=== PATIENT | male | born 1980 | race Caucasian/White ===

== ENCOUNTER 2016-06-10 16:01 | Emergency (ER) | payer MEDICARE, MEDICAID ==
[~2016-06-10] VITALS: Ht 188 cm; Wt 59.0 kg
[~2016-06-10 16:01] MED LIST: ASCO250T7 PO; ATEN25TA PO; CHOL100040 PO
[2016-06-10] MEDS ORDERED: DIATR MEGLU/DIATRIZOATE SODIUM 30 ML BOTTLE (GASTROGRAPHIN) ONE ×2 (18:19)
[2016-06-10 22:41] VITALS: BP 112/80
== END 2016-06-10 22:43 | disposition home or self-care (01) ==
LOC: ER 16:03
DX: K94.13 Enterostomy malfunction (principal); K56.41 Fecal impaction; K56.60 Unspecified intestinal obstruction; L03.319 Cellulitis of trunk, unspecified; I42.9 Cardiomyopathy, unspecified; J96.10 Chronic respiratory failure, unspecified whether with hypoxia or hypercapnia; E11.9 Type 2 diabetes mellitus without complications; G71.0 Muscular dystrophy; Z99.3 Dependence on wheelchair; Z88.0 Allergy status to penicillin; Z88.2 Allergy status to sulfonamides; Z88.1 Allergy status to other antibiotic agents
CPT/HCPCS: 74176; 99284; A4606; J3490; Q9963; Z7610

== ENCOUNTER 2022-05-06 18:07 | Inpatient (IN) | payer MEDICARE, OTHER ==
[~2022-05-06] VITALS: Ht 162.6 cm; Wt 73.9 kg
--- NOTE | 2022-05-06 18:20 | NUR ---
pt theodorera from home to er bed 05 accompanied by caregiver w/ complaints of "difficulty swallowing" and episode of o2 desaturation, pt fis vent dependent. tachycardic but afebrile ship captain. placed on monitor, rt called for vent set up. awaiting md goodwin.
--- NOTE | 2022-05-06 18:35 | NUR ---
RT AT BEDSIDE FOR VENT SET-UP
--- NOTE | 2022-05-06 18:50 | NUR ---
dr beal at bedside for eval.
--- NOTE | 2022-05-06 19:08 | NUR ---
SUBMITTED MOVE SHEETS
--- NOTE | 2022-05-06 19:29 | NUR ---
FAMILY [phone] IVANNA VENEGAS
--- NOTE | 2022-05-06 19:30 | NUR ---
RT NOTE LATE ENTRY Pt rec'd trached via Bivona sz 6 uncuffed on mech vent settings given from caregiver. Pt placed on mech vent on AC mode settings as charted. Family member refuses for trach to be changed to a cuffed trach due to complications, MD and RN aware. Trach is patent and secured. Pt awake and alert. Sx'd for small amount of thick white secretions. Alarms are set and audible. Ambu bag and emergency spare trach at bedside. Vent plugged into red outlet. ABG taken and critical results noted. aware. Addendum: 05/06/22 at 2008 by ARCELIA AVILES RT Amended: Links added.
--- NOTE | 2022-05-06 19:45 | NUR ---
FLU AND COVID SWAB COLLECTED
--- NOTE | 2022-05-06 19:49 | NUR ---
RECEIVED REPORT FROM JOEY AVENDAÑO. PATIENT CAME WITH TRACHE AND WAS USING VENT. HE CAME WITH CC OF UNABLE TO SWALLOW. PATIENT HAS NICHOLAS UPPER AND LOWER EXTREMITIES CONTRACTURES. HE RESPONDS BY KNODDING HIS HEAD AND TALKING...
--- NOTE | 2022-05-06 19:49 | NUR ---
CAREGIVER AND RT AT BEDSIDE. PATIENT HAS NO PAIN COMPLAINTS. ATTACHED TO MONITOR. VITALS CHECKED.
--- NOTE | 2022-05-06 19:49 | NUR ---
CAME WITH TRACHE ATTACHED TO VENT ON AC MODE. FiO2 50, TV 1100, RATE OF 13, PEEP 0
--- NOTE | 2022-05-06 19:50 | NUR ---
CALLED NURSE SUP FOR FOLLOW UP MIDLINE, NO ETA
[2022-05-06 19:53] LABS: PEEP,VBG 0 cm H2O; SITE, VBG Left Radial; VBG COHb 0.3 %; VBG MetHb 0.6 %; VBG O2Hb 98.5 %; VENT MODE, VBG AC 13 1100 50% +0; VT, VBG 1100 mL
--- NOTE | 2022-05-06 20:27 | NUR ---
L WRIST #22G S/L BLOOD COLLECTED AND SENT TO LAB
[2022-05-06 20:39] LABS: HEMATOCRIT 55 % (39-51); LYMPHOCYTES # (AUTO) 1.3 K/uL (0.8-4.8); LYMPHOCYTES % (AUTO) 5.5 % (20.0-44.0); MEAN CORPUSCULAR HGB CONC 31 g/dl (31.0-36.0); MEAN CORPUSCULAR VOLUME 103 fL (80-96); MONOCYTES # (AUTO) 1.9 K/uL (0.1-1.30); NEUTROPHILS # (AUTO) 20.6 K/uL (1.8-8.9); NEUTROPHILS % (AUTO) 86.5 % (43.0-81.0); PLATELET COUNT (AUTO) 319 K/uL (150-450); RED BLOOD CELL COUNT(AUTO) 5.27 MIL/uL (4.5-6.0); WHITE BLOOD COUNT (AUTO) 23.8 K/uL (4.3-11.0)
[2022-05-06 21:27] LABS: CALCIUM, SERUM 10.3 mg/dL (8.5-10.1); CHLORIDE 101 mmol/L (98-107); CREATININE 0.4 mg/dL (0.6-1.3); GLUCOSE 103 mg/dL (74-106); POTASSIUM 5.6 mmol/L (3.5-5.1); SODIUM SERUM 137 mmol/L (136-145); UREA NITROGEN, BLOOD 28 mg/dL (7-18)
[2022-05-06 21:30] LABS: CARBON DIOXIDE 5 mmol/L (21-32)
--- NOTE | 2022-05-06 21:31 | NUR ---
CO2 - 5
[2022-05-06] MEDS ORDERED: SODIUM POLYSTYRENE SULFONATE 15 G/60 ML BOTTLE PO ONE (22:00)
[2022-05-06] MEDS ORDERED: SODIUM BICARBONATE SYR 50 MEQ/50 ML DISP.SYRIN IV ONE ×2 (22:00→23:30)
[2022-05-06] MEDS ORDERED: IV NS 0.9% 1,000 ML BAG IV ONE (22:00)
[2022-05-06] MEDS ORDERED: AZTREONAM 1 G in IV NS 0.9% 100 ML IV ONE (22:00)
[2022-05-06] MEDS ORDERED: AZITHROMYCIN 500 MG in IV D5W 250 ML IV ONE (22:00)
--- NOTE | 2022-05-06 22:06 | NUR ---
RT NOTE LATE ENTRY 2ND ABG TAKEN AND CRITICAL RESULTS REPORTED TO DILCIA CAMILO
[2022-05-06] MEDS ORDERED: Sodium Bicarbonate 150 MEQ in IV NS 0.9% 1,000 ML IV STA (22:11)
[2022-05-06] MEDS ORDERED: Sodium Bicarbonate 150 MEQ in IV D5W 1,000 ML IV STA (22:17)
[2022-05-06] MEDS ORDERED: AZITHROMYCIN 500 MG VIAL ONE (22:18)
[2022-05-06 22:22] LABS: ABG BASE EXCESS -27.3 mmol/L; ABG PCO2 13.6 mmHg (35.0-45.0); ABG PH 6.962 (7.350-7.450); ABG PO2 297.7 mmHg (75.0-100.0); COHb 0.3 % (0.5-1.5); MetHb 0.7 % (0.0-1.5); O2Hb 98.4 % (94.0-97.0); PEEP,BG 0 cm H2O; SITE, ABG Right Radial; VENT MODE, BG AC 13 1100 50% +0; VT, ABG 1100 mL
[2022-05-06] MEDS: VANCOMYCIN 1 GM in IV D5W 250 ML IV ONE ×2 (22:23→23:55)
--- NOTE | 2022-05-06 22:25 | NUR ---
PT FAILED SWALLOWING TEST. TRIED INTRODUCING WATER BEFORE MEDICINE. PT CANNOT SWALLOW. DR HA MADE AWARE
[2022-05-06 22:29] LABS: BAND % (MANUAL) 3 % (0.0-5.0); LYMPHOCYTES % (MANUAL) 8 % (16-48); MONOCYTES % (MANUAL) 10 % (0-11.0); NEUTROPHILS % (MANUAL) 79 (42-76)
[2022-05-06] MEDS ORDERED: AZTREONAM 1 G VIAL ONE (22:31)
--- NOTE | 2022-05-06 22:45 | NUR ---
LEFT VM TO FACILITY TO CALL BACK. I HAVE INQUIRIES ABOUT THE PATIENT.
[2022-05-07] VITALS (41 sets, daily range): BP systolic 81–133; BP diastolic 42–89
--- NOTE | 2022-05-07 00:14 | NUR ---
GAVE A TOTAL OF 200 meq IVP Na HCo3. PER BARBARA VIZCAINO TO HOLD DR HA'S ORDER FOR NOW.
[2022-05-07] MEDS ORDERED: VANCOMYCIN 1 GM VIAL ONE (00:29)
--- NOTE | 2022-05-07 00:30 | NUR ---
RT NOTE LATE ENTRY Pt rec'd on bivona cuffless trach sz 6. Trach change to [place] SZ 6 cuffed per Wilstein AUTOMATIC EMBROIDERY MACHINE TENDER orders. Minimal bleeding noted. Pt able to receive adequate tidal volumes and airway [facility] Spo2 at 100%. Clear breath sounds heard on auscultation. Vent changes made per Wilstein AUTOMATIC EMBROIDERY MACHINE TENDER orders. Abg to be taken at 0100 per Wilstein orders. Addendum: 05/07/22 at 0104 by ARCELIA AVILES RT Amended: Links added.
--- NOTE | 2022-05-07 00:57 | NUR ---
ROOM 258
[2022-05-07] MEDS ORDERED: ACETAMINOPHEN 325 MG TABLET PO PRN (01:00)
[2022-05-07] MEDS ORDERED: CLINDAMYCIN IV RTU IN D5W 900 MG/50 ML PIGGYBACK IV SCH (01:00)
[2022-05-07] MEDS ORDERED: Z GUARD REMEDY 4 OZ OINT TP PRN (01:00)
[2022-05-07] MEDS ORDERED: ENOXAPARIN SODIUM 40 MG/0.4 ML DISP.SYRIN SQ SCH ×2 (01:00→06:39)
[2022-05-07] MEDS ORDERED: ONDANSETRON HCL/PF 4 MG/2 ML VIAL IVP PRN (01:00)
[2022-05-07 01:34] LABS: ABG BASE EXCESS -14.2 mmol/L; ABG PCO2 18.5 mmHg (35.0-45.0); ABG PH 7.314 (7.350-7.450); ABG PO2 271.9 mmHg (75.0-100.0); COHb 0.3 % (0.5-1.5); MetHb 0.5 % (0.0-1.5); O2Hb 98.5 % (94.0-97.0); PEEP,BG 0 cm H2O; SITE, ABG Right Radial; VENT MODE, BG AC 35 450 50% +0; VT, ABG 450 mL
--- NOTE | 2022-05-07 01:56 | NUR ---
RADIO TELEVISION ANNOUNCER AT PT'S BEDSIDE
--- NOTE | 2022-05-07 01:58 | NUR ---
IV CANNULA G22 INSERTED ON LEFT UPPER ARM, G24 ON RIGHT UPPER ARM. CANNOT DRAW BLODDS.
--- NOTE | 2022-05-07 01:59 | NUR ---
REPORT GIVEN TO JOEY CHAU
--- NOTE | 2022-05-07 02:12 | NUR ---
IFC F16 INSERTED. URINE SPECIMEN SENT TO LAB
--- NOTE | 2022-05-07 02:27 | NUR ---
PT TAKEN TO CT VIA ALVERTORARCHANA WITH RT ACLS PROTOCOL
[2022-05-07 02:35] LABS: BILIRUBIN,URINE 2+ (NEGATIVE); COLOR,URINE YELLOW (YELLOW); LEUKOCYTE ESTERASE ,URINE 1+ (NEGATIVE); NITRITE, URINE NEGATIVE (NEGATIVE); PROTEIN,URINE 2+ mg/dl (NEGATIVE); UGLUCOSE NEGATIVE (NEGATIVE); UROBILINOGEN,URINE 0.2 EU/dL (0.2)
[2022-05-07 02:39] LABS: BACTERIA,URINE Few /HPF (None Seen); SQUAMOUS EPITHELIAL CELL,UR Few /HPF (None Seen)
--- NOTE | 2022-05-07 02:46 | NUR ---
PUSHED PT TO CT DEPT VENTED. ACCOM. BY NURSE AND RT, AND RESPIRATORY PRACTITIONER
[2022-05-07] MEDS ORDERED: SODIUM BICARBONATE SYR 50 MEQ/50 ML DISP.SYRIN ONE (02:53)
[2022-05-07] MEDS: Sodium Bicarbonate 150 MEQ in IV D5W 1,000 ML IV PRN ×3 (03:16→18:37)
[2022-05-07 03:21] LABS: BASOPHILS # (AUTO) 0.1 K/uL (0.0-0.2); BASOPHILS % (AUTO) 0.5 % (0.0-2.0); EOSINOPHILS % (AUTO) 0.2 % (0.0-6.0); HEMATOCRIT 54 % (39-51); HEMOGLOBIN 16.7 g/dL (13.5-17.5); LYMPHOCYTES # (AUTO) 2.6 K/uL (0.8-4.8); LYMPHOCYTES % (AUTO) 10.6 % (20.0-44.0); MEAN CORPUSCULAR HGB CONC 31 g/dl (31.0-36.0); MEAN CORPUSCULAR VOLUME 103 fL (80-96); MONOCYTES % (AUTO) 8.1 % (2.0-12.0); NEUTROPHILS # (AUTO) 19.6 K/uL (1.8-8.9); NEUTROPHILS % (AUTO) 80.6 % (43.0-81.0); PLATELET COUNT (AUTO) 296 K/uL (150-450); RED BLOOD CELL COUNT(AUTO) 5.25 MIL/uL (4.5-6.0); WHITE BLOOD COUNT (AUTO) 24.4 K/uL (4.3-11.0)
[2022-05-07] MEDS ORDERED: IV NS 0.9% 250 ML IV PRN (03:30)
[2022-05-07 03:43] LABS: ALBUMIN 4.5 g/dL (3.4-5.0); BILIRUBIN,DIRECT 0.5 mg/dL (0.0-0.2); BILIRUBIN,TOTAL 1.1 mg/dL (0.2-1.0); TOTAL PROTEIN, SERUM 8.1 g/dL (6.4-8.2)
[2022-05-07 03:54] LABS: CALCIUM, SERUM 9.2 mg/dL (8.5-10.1); CREATININE 0.5 mg/dL (0.6-1.3); PHOSPHORUS 3.5 mg/dL (2.5-4.9)
[2022-05-07 04:13] LABS: POTASSIUM 2.2 mmol/L (3.5-5.1)
[2022-05-07] MEDS ORDERED: CLINDAMYCIN IV RTU IN D5W 0 ML ONE (04:27)
[2022-05-07] MEDS ORDERED: POTASSIUM CL. PREMIX PERIPHER. 50 ML IV SCH (04:30)
[2022-05-07] MEDS ORDERED: METRONIDAZOLE 500MG/ NS 100ML 100 ML IV ONE (04:47)
[2022-05-07] MEDS: METRONIDAZOLE 500MG/ NS 100ML 500 MG in PREMIX 1 EA IV SCH ×4 (05:00→23:00)
[2022-05-07] MEDS: POTASSIUM CL. PREMIX PERIPHER. 50 ML IV SCH ×8 (05:00→13:05)
[2022-05-07 05:09] LABS: ABG BASE EXCESS -14.7 mmol/L; ABG OXYGEN SATURATION 98.9 % (92.0-98.5); ABG PCO2 19.4 mmHg (35.0-45.0); ABG PO2 148.3 mmHg (75.0-100.0); AaDO2 78.7 mmHg; COHb 0.7 % (0.5-1.5); MetHb 0.5 % (0.0-1.5); O2Hb 97.7 % (94.0-97.0); PEEP,BG 0 cm H2O; SITE, ABG Left Radial; VENT MODE, BG AC 35 450 35% +0; VT, ABG 450 mL
--- NOTE | 2022-05-07 07:17 | NUR ---
RN Notes Received patient in bed, resting and not grimacing. property assessment monitor showed SR with HR 68/min. Spo2 96% with FiO2 0.4, SIMV mode via ETT, marking at 23cm. Circulation is good with restraint use. Iv site over right subclavian and right upper arm midline are dry and patent, with NS running at 30mL/hr via right subclavian site. Bed is locked and placed in the lowest position. All safety measures have been implemented. Will continue monitoring and care.
[2022-05-07] MEDS ORDERED: IPRA3AMP23 NEB (08:28)
[2022-05-07] MEDS ORDERED: SPIR25TA6 PO (08:28)
[2022-05-07] MEDS ORDERED: METO25TA4 PO (08:28)
[2022-05-07] MEDS ORDERED: LISI10TA29 PO (08:28)
[2022-05-07] MEDS ORDERED: CLINDAMYCIN 900 MG in IV D5W 50 ML IV SCH (09:00)
[2022-05-07] MEDS: PANTOPRAZOLE 40 MG VIAL IV SCH (09:31)
--- NOTE | 2022-05-07 10:21 | NUR ---
SS note: SS consult requested to locate next of kin/ decision maker. SW called the pt.'s caregiver, Jesica Elizondo [phone] and she stated that she has been caring for the pt. for the past 10 years and that the pt.'s mother is . Per Jesica, she called the pt.'s [id number], Moises and notified him that the hospital needs a next of kin. Per Jesica, Moises does not want to be involved and has allegedly notified patient's relatives of situation and provide SW number. SW will follow up as needed.
[2022-05-07] MEDS: VANCOMYCIN 500 MG in IV D5W 100 ML IV SCH ×3 (10:55→23:00)
--- NOTE | 2022-05-07 12:00 | NUR ---
Next of Kin: ENRIQUE received call from the pt.'s caregiver, Jesica Elizondo [phone] stating that ENRIQUE could contact Kadeem Townsend [phone]. ENRIQUE called Kadeem and Kadeem stated that the pt. was adopted as an by his grandmother, Meliza who has since and pt. was then cared for by the Iris' sister, Farnaz and her , Ed [phone]. Farnaz has also but her remains and may be knowledgeable about the pt.s' medical history. Kadeem stated he is the 1st cousin of pt.'s adoptive mother, Meliza and he is happy to assist in any decision making as needed.ENRIQUE notified the pt.'s nurse.
--- NOTE | 2022-05-07 13:01 | NUR ---
Urine x ketone and acetone was collected. Lab is notified.
--- NOTE | 2022-05-07 14:00 | NUR ---
RN note Notified BARBARA Le about not being able to draw blood from midline and all the labs in the morning are pending. Await management.
[2022-05-07] MEDS ORDERED: CEFEPIME 2 GM in IV D5W 100 ML IV SCH (15:00)
[2022-05-07 17:15] LABS: ABG BASE EXCESS -6.2 mmol/L; ABG OXYGEN SATURATION 99.1 % (92.0-98.5); ABG PCO2 15.4 mmHg (35.0-45.0); ABG PH 7.528 (7.350-7.450); AaDO2 38.7 mmHg; COHb 0.5 % (0.5-1.5); MetHb 0.3 % (0.0-1.5); O2Hb 98.3 % (94.0-97.0); VT, ABG 400 mL
--- NOTE | 2022-05-07 17:15 | NUR ---
RN note JAVA PORTAL DEVELOPER Johnny Bryant has put a PICC over right UA. Blood is drawn for all labs today. Await result.
[2022-05-07 19:16] LABS: CALCIUM, SERUM 7.9 mg/dL (8.5-10.1); CREATININE 0.7 mg/dL (0.6-1.3); POTASSIUM 4.5 mmol/L (3.5-5.1)
[2022-05-07 19:21] LABS: ALBUMIN 3.4 g/dL (3.4-5.0); BILIRUBIN,TOTAL 0.8 mg/dL (0.2-1.0); MAGNESIUM 1.5 mg/dL (1.8-2.4); PHOSPHORUS 1.7 mg/dL (2.5-4.9); TOTAL PROTEIN, SERUM 6.6 g/dL (6.4-8.2)
[2022-05-07 20:14] LABS: THYROID STIMULATING HORMONE 12.53 uIU/mL (0.358-3.74)
--- NOTE | 2022-05-07 20:19 | NUR ---
RECEIVED PT TRACH PORTEX 6 ON VENT. PT IS AWAKE NO RESP DISTRESS. PT TOLERATING VENT SETTINGS. SX'D SMALL AMT OF THICK WHITE SECRETIONS. VENT ALARMS SET AND AUDIBLE. AMBU BAG AT BEDSIDE. CONTINUE TO MONITOR. Addendum: 05/07/22 at 2020 by MARTIN MCGOVERN RT Amended: Links added.
[2022-05-07] MEDS ORDERED: IV LR 1000 ML 1,000 ML IV ONE (20:30)
--- NOTE | 2022-05-07 20:30 | NUR ---
BOOK AUTHOR LR BOLUS GIVEN FOR HYPOTENSION PER BARBARA GUAJARDO
[2022-05-07 21:55] LABS: ACETAMINOPHEN 0 ug/ml (10-30)
[2022-05-07 21:57] LABS: CREATINE KINASE, TOTAL 249 U/L (39-308)
[2022-05-08] VITALS (55 sets, daily range): BP systolic 71–129; BP diastolic 39–81
[2022-05-08] MEDS: CEFEPIME 2 GM in IV D5W 100 ML IV SCH ×3 (01:30→17:24)
[2022-05-08] MEDS: Sodium Bicarbonate 150 MEQ in IV D5W 1,000 ML IV PRN (02:38)
[2022-05-08] MEDS: METRONIDAZOLE 500MG/ NS 100ML 500 MG in PREMIX 1 EA IV SCH ×4 (05:00→23:22)
[2022-05-08 05:01] LABS: ABG BASE EXCESS 7.6 mmol/L; ABG OXYGEN SATURATION 99.1 % (92.0-98.5); ABG PCO2 27.5 mmHg (35.0-45.0); ABG PH 7.621 (7.350-7.450); ABG PO2 160.1 mmHg (75.0-100.0); AaDO2 57.5 mmHg; COHb 0.6 % (0.5-1.5); MetHb 0.3 % (0.0-1.5); O2Hb 98.2 % (94.0-97.0); SITE, ABG Left Radial
[2022-05-08 05:18] LABS: BASOPHILS % (AUTO) 0.1 % (0.0-2.0); EOSINOPHILS % (AUTO) 0.1 % (0.0-6.0); HEMATOCRIT 46 % (39-51); HEMOGLOBIN 15.6 g/dL (13.5-17.5); LYMPHOCYTES # (AUTO) 0.6 K/uL (0.8-4.8); LYMPHOCYTES % (AUTO) 4.4 % (20.0-44.0); MEAN CORPUSCULAR HGB CONC 34 g/dl (31.0-36.0); MEAN CORPUSCULAR VOLUME 93 fL (80-96); MONOCYTES # (AUTO) 0.7 K/uL (0.1-1.30); NEUTROPHILS # (AUTO) 12.8 K/uL (1.8-8.9); NEUTROPHILS % (AUTO) 90.4 % (43.0-81.0); PLATELET COUNT (AUTO) 219 K/uL (150-450); RED BLOOD CELL COUNT(AUTO) 4.93 MIL/uL (4.5-6.0); WHITE BLOOD COUNT (AUTO) 14.2 K/uL (4.3-11.0)
[2022-05-08 05:29] LABS: CALCIUM, SERUM 7.6 mg/dL (8.5-10.1); CREATININE 0.9 mg/dL (0.6-1.3); POTASSIUM 3.3 mmol/L (3.5-5.1)
[2022-05-08 05:36] LABS: MAGNESIUM 1.2 mg/dL (1.8-2.4); PHOSPHORUS 0.5 mg/dL (2.5-4.9)
--- NOTE | 2022-05-08 07:00 | NUR ---
RN NOTES RECEIVED PT ON BED, TRACH/ VENT DEPENDENT , TOLERATING VENT SETTING WELL, TRACH CARE DONE, ON TELE ST HR IN 120'S , SHEETS WITH SMALL AMOUNT OF URINE NOTED, PT NGT CLAMPED AT THIS TIME BICARB DRIP AT 150CC/HR RUNNING , IV SITES ,CDI, SR UP x3, CALL LIGHT WITHIN EASY REACH, BED LOCKED AND IN LOWEST POSITION, CONTINUE TO MONITOR .
[2022-05-08] MEDS: Magnesium 1GM/D5W 100ML PREMIX 100 ML IV SCH ×4 (07:01→10:40)
[2022-05-08] MEDS: POTASSIUM PHOSPHATE MM 7.5 MMOL in IV NS 0.9% 100 ML IV SCH ×4 (07:01→22:24)
[2022-05-08] MEDS: VANCOMYCIN 500 MG in IV D5W 100 ML IV SCH (08:23)
[2022-05-08] MEDS: PANTOPRAZOLE 40 MG VIAL IV SCH (08:28)
[2022-05-08] MEDS: ENOXAPARIN SODIUM 40 MG/0.4 ML DISP.SYRIN SQ SCH ×2 (08:29→21:13)
[2022-05-08 10:53] LABS: CREATININE 0.9 mg/dL (0.6-1.3); POTASSIUM 2.9 mmol/L (3.5-5.1)
[2022-05-08 10:58] LABS: MAGNESIUM 2.5 mg/dL (1.8-2.4); PHOSPHORUS 1.2 mg/dL (2.5-4.9)
--- NOTE | 2022-05-08 12:00 | NUR ---
RN NOTES TRACH CARE DONE, CONTINUE TO MONITOR
[2022-05-08] MEDS ORDERED: Sodium Phosphate 15 MMOL in IV NS 0.9% 245 ML IV SCH (14:00)
[2022-05-08] MEDS: Potassium Chloride 40 MEQ in IV D5/ 0.9% NACL 1,000 ML IV SCH ×2 (14:23→23:12)
[2022-05-08 14:53] LABS: CREATININE 0.7 mg/dL (0.6-1.3); POTASSIUM 2.9 mmol/L (3.5-5.1)
[2022-05-08 14:58] LABS: PHOSPHORUS 3.1 mg/dL (2.5-4.9)
--- NOTE | 2022-05-08 18:35 | NUR ---
RN NOTES TRACH CARE DONE PRN , FIO2 AT 55% AT THIS TIME,NO SIGNIFICANT CHANGES NOTED ON THIS SHIFT , PT STILL RECEIVING IV ELECTROLYSES REPLACEMENT , WILL ENDORSE TO SPEECH PATHOLOGIST ASSISTANT NURSE FOR CONTINUITY OF CARE
[2022-05-08] MEDS ORDERED: NOREPINEPHRINE 8MG/250ML RTU 250 ML IV ONE (20:04)
[2022-05-08] MEDS: NOREPINEPHRINE 8 MG in IV NS 0.9% 242 ML IV PRN (20:14)
[2022-05-08] MEDS: VANCOMYCIN 500 MG in IV D5W 100ml IV SCH ×2 (20:26→20:36)
[2022-05-08 22:56] LABS: CALCIUM, SERUM 6.8 mg/dL (8.5-10.1); CREATININE 0.8 mg/dL (0.6-1.3); MAGNESIUM 2.6 mg/dL (1.8-2.4); PHOSPHORUS 4.6 mg/dL (2.5-4.9); POTASSIUM 3.7 mmol/L (3.5-5.1)
[2022-05-09] VITALS (94 sets, daily range): BP systolic 84–121; BP diastolic 42–76
[2022-05-09] MEDS: CEFEPIME 2 GM in IV D5W 100 ML IV SCH ×3 (01:34→17:04)
[2022-05-09 02:46] LABS: CALCIUM, SERUM 6.5 mg/dL (8.5-10.1); CREATININE 0.8 mg/dL (0.6-1.3); MAGNESIUM 2.5 mg/dL (1.8-2.4); POTASSIUM 4.4 mmol/L (3.5-5.1)
[2022-05-09 05:14] LABS: BASOPHILS # (AUTO) 0.1 K/uL (0.0-0.2); HEMATOCRIT 43 % (39-51); HEMOGLOBIN 14.3 g/dL (13.5-17.5); LYMPHOCYTES # (AUTO) 0.3 K/uL (0.8-4.8); LYMPHOCYTES % (AUTO) 2.5 % (20.0-44.0); MEAN CORPUSCULAR HGB CONC 34 g/dl (31.0-36.0); MEAN CORPUSCULAR VOLUME 95 fL (80-96); MONOCYTES # (AUTO) 0.7 K/uL (0.1-1.30); MONOCYTES % (AUTO) 5.7 % (2.0-12.0); NEUTROPHILS % (AUTO) 90.8 % (43.0-81.0); PLATELET COUNT (AUTO) 221 K/uL (150-450); RED BLOOD CELL COUNT(AUTO) 4.47 MIL/uL (4.5-6.0); WHITE BLOOD COUNT (AUTO) 12.1 K/uL (4.3-11.0)
[2022-05-09] MEDS: METRONIDAZOLE 500MG/ NS 100ML 500 MG in PREMIX 1 EA IV SCH (05:28)
[2022-05-09 05:36] LABS: CALCIUM, SERUM 6.7 mg/dL (8.5-10.1); CREATININE 0.7 mg/dL (0.6-1.3); MAGNESIUM 2.5 mg/dL (1.8-2.4); PHOSPHORUS 4.4 mg/dL (2.5-4.9); POTASSIUM 4.1 mmol/L (3.5-5.1)
--- NOTE | 2022-05-09 06:52 | NUR ---
PT RECEIVED AWAKE IN BED, ALERT. ON MECH VENT WITH SETTINGS PRESCRIBED. ON TELE MONITOR READING ST WITH PVC'S. PT REMAINS ON NPO. PICC LINE IN PLACE, INFUSING POTASSIUM 40 MEQ IN D5NS AT 100ML/HR, LEVO AT 0.3MCG/HR. PT NGT CLAMPED AT THIS TIME. SHEETS WITH SMALL AMOUNT OF URINE NOTED, PT SLEPT WELL. KEPT CLEAN AND DRY. DUE MEDS AND PRN MEDS GIVEN NEEDED AND ORDERED. NEEDS ATTENDED. SAFETY MEASURES MAINTAINED. WILL ENDORSE TO NEXT NURSE ON DUTY FOR CONTINUITY OF CARE.
--- NOTE | 2022-05-09 07:00 | NUR ---
RN NOTES PT RECEIVED AWAKE ON BED, ALERT. VENT/ TRACH DEPENDENT, TOLERATING VENT SETTING WELL, ON TELE MONITOR READING ST WITH PVC'S. PT REMAINS ON NPO. PICC LINE IN PLACE, INFUSING POTASSIUM 40 MEQ IN D5NS AT 100ML/HR, LEVO AT 0.3MCG/HR. PT NGT CLAMPED AT THIS TIME. SHEETS WITH SMALL AMOUNT OF URINE NOTED, SAFETY MEASURES INPLACED, CONTINUE TO MONITOR
[2022-05-09] MEDS: NOREPINEPHRINE 8 MG in IV NS 0.9% 242 ML IV PRN (07:16)
--- NOTE | 2022-05-09 07:53 | NUR ---
fio2 decreased from 55% to 30% due to 100% spo2 Addendum: 05/09/22 at 0754 by ANEUDY REGALADO RT Amended: Links added.
[2022-05-09] MEDS: ENOXAPARIN SODIUM 40 MG/0.4 ML DISP.SYRIN SQ SCH ×2 (08:16→21:08)
[2022-05-09] MEDS: PANTOPRAZOLE 40 MG VIAL IV SCH (08:18)
[2022-05-09 09:27] LABS: ABG OXYGEN SATURATION 98.8 % (92.0-98.5); ABG PCO2 36.9 mmHg (35.0-45.0); ABG PO2 135.2 mmHg (75.0-100.0); AaDO2 35.3 mmHg; COHb 0.8 % (0.5-1.5); MetHb 0.5 % (0.0-1.5); O2Hb 97.5 % (94.0-97.0); SITE, ABG Right Radial; VENT MODE, BG aC 16 350 0 30%
[2022-05-09] MEDS: Potassium Chloride 40 MEQ in IV D5/ 0.9% NACL 1,000 ML IV SCH ×2 (10:53→20:20)
[2022-05-09 11:04] LABS: CALCIUM, SERUM 6.1 mg/dL (8.5-10.1); CREATININE 0.7 mg/dL (0.6-1.3); MAGNESIUM 2.2 mg/dL (1.8-2.4); PHOSPHORUS 3.2 mg/dL (2.5-4.9); POTASSIUM 3.9 mmol/L (3.5-5.1)
[2022-05-09 11:05] LABS: BILIRUBIN,DIRECT 0.3 mg/dL (0.0-0.2); BILIRUBIN,TOTAL 0.6 mg/dL (0.2-1.0)
--- NOTE | 2022-05-09 12:00 | NUR ---
RN NOTES TRACH CARE DONE, PT ON LEVO FOR BP SUPPORT, TF AT 20CC/HR RUNNING , PT TOLERATING WELL, CONTINUE TO MONITOR .
[2022-05-09] MEDS: GLUCERNA 1.2 1,000 ML BOTTLE NG PRN (12:28)
--- NOTE | 2022-05-09 16:00 | NUR ---
RN NOTES [facility] MATRASS PLACED ON THE BED .
--- NOTE | 2022-05-09 18:27 | NUR ---
RN NOTES TRACH CARE DONE PRN, PT REMAINS ON LEVO FOR PB SUPPORT, ON TELE ST , HR IN 120'S, SHEETS DRAINING TO GRAVITY, IVF AT 100CC/HR RUNNING , TOLERATING TF AT 20CC/HR WELL, WILL ENDORSE TO DAY CARE HOME PROVIDER NURSE FOR CONTINUITY OF CARE .
[2022-05-09] MEDS ORDERED: VANCOMYCIN 500 MG in IV D5W 100ml IV SCH (20:00)
[2022-05-10] VITALS (99 sets, daily range): BP systolic 70–116; BP diastolic 35–74
[2022-05-10] MEDS: CEFEPIME 2 GM in IV D5W 100 ML IV SCH ×3 (02:00→17:27)
[2022-05-10] MEDS: NOREPINEPHRINE 8 MG in IV NS 0.9% 242 ML IV PRN ×2 (03:31→13:08)
[2022-05-10 04:40] LABS: BASOPHILS % (AUTO) 0.2 % (0.0-2.0); EOSINOPHILS % (AUTO) 0.2 % (0.0-6.0); HEMATOCRIT 42 % (39-51); HEMOGLOBIN 13.9 g/dL (13.5-17.5); LYMPHOCYTES # (AUTO) 0.5 K/uL (0.8-4.8); LYMPHOCYTES % (AUTO) 4.8 % (20.0-44.0); MEAN CORPUSCULAR HGB CONC 33 g/dl (31.0-36.0); MEAN CORPUSCULAR VOLUME 96 fL (80-96); MONOCYTES # (AUTO) 0.6 K/uL (0.1-1.30); NEUTROPHILS % (AUTO) 89.8 % (43.0-81.0); PLATELET COUNT (AUTO) 167 K/uL (150-450); WHITE BLOOD COUNT (AUTO) 11.1 K/uL (4.3-11.0)
[2022-05-10 04:57] LABS: CALCIUM, SERUM 6.3 mg/dL (8.5-10.1); CREATININE 0.5 mg/dL (0.6-1.3); MAGNESIUM 2.1 mg/dL (1.8-2.4); PHOSPHORUS 1.8 mg/dL (2.5-4.9); POTASSIUM 4.7 mmol/L (3.5-5.1)
[2022-05-10 05:32] LABS: PROSTATE SPECIFIC ANTIGEN SCR 2.63 ng/mL (0.00-4.00)
--- NOTE | 2022-05-10 07:00 | NUR ---
RN NOTES RECEIVED PT ON BED, DRAWZY, FOLLOWS SIMPLE COMMAND, VENT/ TRACH DEPENDENT, TOLERATING VENT SETTING WELL, TRACH CARE DONE, ON TELE MONITOR READING ST HR IN 110'S, ON NGT FEEDING AT 20CC/HR , NO RESIDUAL NOTED ,PICC LINE IN PLACE, INFUSING POTASSIUM 40 MEQ IN D5NS AT 100ML/HR, LEVO AT 0.3MCG/HR. SHEETS WITH SMALL AMOUNT OF URINE NOTED, SAFETY MEASURES INPLACED, CONTINUE TO MONITOR
[2022-05-10] MEDS: Potassium Chloride 40 MEQ in IV D5/ 0.9% NACL 1,000 ML IV SCH (07:14)
[2022-05-10] MEDS: PANTOPRAZOLE 40 MG VIAL IV SCH (08:33)
[2022-05-10] MEDS: ENOXAPARIN SODIUM 40 MG/0.4 ML DISP.SYRIN SQ SCH ×2 (09:17→20:51)
[2022-05-10] MEDS: GLUCERNA 1.2 1,000 ML BOTTLE NG PRN (11:13)
[2022-05-10] MEDS ORDERED: NEUTRA PHOS 1 POWD.PACKET PO ONE (12:00)
--- NOTE | 2022-05-10 12:00 | NUR ---
RN NOTES TRACH CARE AND ORAL CARE DONE, PT ON LEVO FOR BP SUPPORT, CONTINUE TO MONITOR .
[2022-05-10 12:17] LABS: ABG BASE EXCESS -4.7 mmol/L; ABG OXYGEN SATURATION 97.7 % (92.0-98.5); ABG PCO2 40.4 mmHg (35.0-45.0); ABG PH 7.331 (7.350-7.450); ABG PO2 98.6 mmHg (75.0-100.0); AaDO2 67.8 mmHg; COHb 0.9 % (0.5-1.5); MetHb 0.3 % (0.0-1.5); O2Hb 96.5 % (94.0-97.0); SITE, ABG Right Radial
--- NOTE | 2022-05-10 17:00 | NUR ---
RN NOTES DR ASHLEY NOTIFIED REGARDING CORTISOL LEVEL 52.4 ,NO NEW ORDER GIVEN
--- NOTE | 2022-05-10 18:05 | NUR ---
RN NOTES TRACH CARE DONE PRN, PT REMAINS ON LEVO FOR PB SUPPORT, ON TELE ST , HR IN 120'S, SHEETS DRAINING TO GRAVITY, TOLERATING TF AT 20CC/HR WELL, WILL ENDORSE TO INTELLECTUAL PROPERTY MANAGER NURSE FOR CONTINUITY OF CARE .
--- NOTE | 2022-05-10 19:05 | NUR ---
RN OPENING NOTES RECEIVED PATIENT ON BED, AWAKE OPEN EYES, ON TRACH SIZE #6 WITH VENT SETTING AC-16, TV- 350, FIO2-30%, PEEP- OFF, AFEBRILE, NO S/S OF DISTRESS NOTED. NOTED WITH MICAELA PICC LINE. FLUSHED WITH NS. RUNNING WITH LEVO @ 0.2 MCG/KG/MIN. NOTED WITH NGT ON RIGHT NARE PATENT AND INTACT, VERIFIED PLACEMENT BY AUSCULTATION, NO RESIDUAL NOTED UPON ASPIRATION, RUNNING WITH GLUCERNA 1.2 @ 20 ML/HR, HEAD OF BED KEPT ELEVATED. SHEETS CATHETER PATENT INTACT DRAINING WITH CLEAR YELLOW URINE VIA GRAVITY. ALL SAFETY PRECAUTION PROVIDED. BED IN LOWEST POSITION, LOCKED. CALL LIGHT WITH IN REACH.
[2022-05-11] VITALS (96 sets, daily range): BP systolic 69–120; BP diastolic 41–83
[2022-05-11] MEDS: NOREPINEPHRINE 8 MG in IV NS 0.9% 242 ML IV PRN ×3 (00:51→22:43)
[2022-05-11] MEDS: CEFEPIME 2 GM in IV D5W 100 ML IV SCH ×3 (01:51→17:16)
[2022-05-11 04:15] LABS: EOSINOPHILS % (AUTO) 0.3 % (0.0-6.0); HEMATOCRIT 43 % (39-51); HEMOGLOBIN 14.4 g/dL (13.5-17.5); LYMPHOCYTES # (AUTO) 0.4 K/uL (0.8-4.8); LYMPHOCYTES % (AUTO) 4.9 % (20.0-44.0); MEAN CORPUSCULAR HGB CONC 33 g/dl (31.0-36.0); MEAN CORPUSCULAR VOLUME 96 fL (80-96); MONOCYTES # (AUTO) 0.5 K/uL (0.1-1.30); MONOCYTES % (AUTO) 5.7 % (2.0-12.0); NEUTROPHILS % (AUTO) 89.1 % (43.0-81.0); PLATELET COUNT (AUTO) 136 K/uL (150-450)
[2022-05-11 04:55] LABS: CREATININE 0.4 mg/dL (0.6-1.3); PHOSPHORUS 1.2 mg/dL (2.5-4.9); POTASSIUM 4.5 mmol/L (3.5-5.1)
--- NOTE | 2022-05-11 07:00 | NUR ---
RN OPENING NOTES RECEIVED REPORT FROM [facility] RN HAILEY. PATIENT ON MECHANICAL VENTILATION VIA TRACH. TOLERATING VENT SETTINGS WELL. PATIENT AWAKE,NONVERBAL BUT TRACKS WITH EYES. READING SINUS RHYTHM ON BEDSIDE MONITOR. SHEETS CATHETER DRAINING OUTPUT. GLUCERNA RUNNING ORDERED, NO RESIDUAL. IV ACCESS ON RIGHT UPPER ARM PICC LINE, FLUSHING EASILY WITHOUT RESISTANCE. LEVOPHED RUNNING ORDERED, WILL TITRATE PER PROTOCOL. SAFETY MEASURES IMPLEMENTED WILL CONTINUE PLAN OF CARE AND ANTICIPATE NEEDS.
--- NOTE | 2022-05-11 07:40 | NUR ---
WOUND CARE CONSULT: PT PRESENTS WITH GENERALIZED EDEMA, WEEPING EDEMA TO SCROTAL AREA WITH MOISTURE ASSOCIATED SKIN DAMAGE,AND DIFFUSE AREA OF DISCOLORATION TO LEFT BUTTOCK. PT IS ON FIRST STEP LOW AIRLOSS MATTRESS. ALL SKIN PROTECTION RECOMMENDATIONS DISCUSSED WITH NURSING STAFF. IN AGREEMENT WITH PLAN OF CARE. KORTNEY AGUILAR NOTED. Addendum: 05/11/22 at 0742 by LIZA JAIN WNDNU Amended: Links added.
[2022-05-11] MEDS: PANTOPRAZOLE 40 MG/PACK PACK GT SCH (09:16)
[2022-05-11] MEDS: ENOXAPARIN SODIUM 40 MG/0.4 ML DISP.SYRIN SQ SCH ×2 (09:17→21:39)
[2022-05-11] MEDS ORDERED: Sodium Phosphate 30 MMOL in IV NS 0.9% 250 ML IV SCH (10:00)
[2022-05-11] MEDS: IV NS 0.9% 250 ML IV PRN (10:25)
[2022-05-11] MEDS: GLUCERNA 1.2 1,000 ML BOTTLE NG PRN (10:44)
--- NOTE | 2022-05-11 19:25 | NUR ---
gave hand off report to alicja chau for continuation of care
--- NOTE | 2022-05-11 19:30 | NUR ---
RECEIVED REPORT FROM [facility] JOEY SHIPLEY. PATIENT ON MECHANICAL VENTILATION VIA TRACH ON SETTINGS PRESCRIBED. TOLERATING VENT SETTINGS WELL. PATIENT AWAKE, NONVERBAL BUT TRACKS WITH EYES. READING ST ON BEDSIDE MONITOR. SHEETS CATHETER DRAINING OUTPUT. GLUCERNA INFUSING ORDERED, NO RESIDUAL. IV ACCESS ON RIGHT UPPER ARM PICC LINE, FLUSHING EASILY WITHOUT RESISTANCE. LEVOPHED INFUSING ORDERED, WILL TITRATE PER PROTOCOL. SAFETY MEASURES IN PLACE. WILL CONTINUE PLAN OF CARE AND ANTICIPATE NEEDS.
[2022-05-12] VITALS (81 sets, daily range): BP systolic 77–130; BP diastolic 32–88
[2022-05-12] MEDS: CEFEPIME 2 GM in IV D5W 100 ML IV SCH ×3 (01:54→17:04)
[2022-05-12 04:56] LABS: BASOPHILS % (AUTO) 0.3 % (0.0-2.0); EOSINOPHILS % (AUTO) 0.2 % (0.0-6.0); HEMATOCRIT 41 % (39-51); HEMOGLOBIN 13.5 g/dL (13.5-17.5); LYMPHOCYTES # (AUTO) 0.4 K/uL (0.8-4.8); LYMPHOCYTES % (AUTO) 6.2 % (20.0-44.0); MEAN CORPUSCULAR HGB CONC 33 g/dl (31.0-36.0); MEAN CORPUSCULAR VOLUME 97 fL (80-96); MONOCYTES # (AUTO) 0.6 K/uL (0.1-1.30); MONOCYTES % (AUTO) 8.1 % (2.0-12.0); NEUTROPHILS # (AUTO) 6.1 K/uL (1.8-8.9); NEUTROPHILS % (AUTO) 85.2 % (43.0-81.0); PLATELET COUNT (AUTO) 86 K/uL (150-450); RED BLOOD CELL COUNT(AUTO) 4.24 MIL/uL (4.5-6.0); WHITE BLOOD COUNT (AUTO) 7.2 K/uL (4.3-11.0)
[2022-05-12 05:02] LABS: CALCIUM, SERUM 7.3 mg/dL (8.5-10.1); CREATININE 0.3 mg/dL (0.6-1.3); MAGNESIUM 1.8 mg/dL (1.8-2.4); PHOSPHORUS 2.8 mg/dL (2.5-4.9); POTASSIUM 3.5 mmol/L (3.5-5.1)
--- NOTE | 2022-05-12 06:37 | NUR ---
PATIENT AWAKE, NONVERBAL BUT TRACKS WITH EYES. PATIENT ON MECHANICAL VENTILATION VIA TRACH ON SETTINGS PRESCRIBED. TOLERATING VENT SETTINGS WELL. OS SAT AT 98%. READING SR ON BEDSIDE MONITOR. SHEETS CATHETER DRAINING. GLUCERNA INFUSING AT 35ML/HR, NO RESIDUAL. IV ACCESS ON RIGHT UPPER ARM PICC LINE, FLUSHING EASILY WITHOUT RESISTANCE. LEVOPHED INFUSING ORDERED, TITRATED TO 0.1 MCG/KG/MIN PER PROTOCOL. DUE MEDS GIVEN. NEEDS ATTENDED. KEPT CLEAN AND DRY. SAFETY MEASURES MAINTAINED. WILL ENDORSE TO NEXT NURSE ON DUTY FOR CONTINUITY OF CARE.
--- NOTE | 2022-05-12 07:15 | NUR ---
RN OPENING NOTES RECEIVED REPORT FROM [facility] JOEY PRATHER. PATIENT ON MECHANICAL VENTILATION VIA TRACH. TOLERATING VENT SETTINGS WELL. PATIENT AWAKE,NONVERBAL BUT TRACKS WITH EYES. READING SINUS RHYTHM ON BEDSIDE MONITOR. SHEETS CATHETER DRAINING OUTPUT. GLUCERNA RUNNING ORDERED, NO RESIDUAL. IV ACCESS ON RIGHT UPPER ARM PICC LINE, FLUSHING EASILY WITHOUT RESISTANCE. LEVOPHED RUNNING ORDERED, WILL TITRATE PER PROTOCOL. SAFETY MEASURES IMPLEMENTED WILL CONTINUE PLAN OF CARE AND ANTICIPATE NEEDS.
[2022-05-12] MEDS: PANTOPRAZOLE 40 MG/PACK PACK GT SCH (09:14)
[2022-05-12] MEDS: ENOXAPARIN SODIUM 40 MG/0.4 ML DISP.SYRIN SQ SCH ×2 (09:16→20:30)
--- NOTE | 2022-05-12 11:45 | NUR ---
SS note: SW received call from pt.'s alleged aunt, Jacqueline [phone] stating she wanted to provide her contact number if she is needed by [facility]. ENRIQUE thanked Jacqueline and notified her that Kadeem is the primary contact as of now and she can et updates from him as it is difficult to keep various family members updated. Jacqueline expressed understanding and stated she would be in communication with Willard.
[2022-05-12 13:47] LABS: BAND % (MANUAL) 1 % (0.0-5.0); LYMPHOCYTES % (MANUAL) 7 % (16-48); MONOCYTES % (MANUAL) 8 % (0-11.0); NEUTROPHILS % (MANUAL) 84 (42-76)
[2022-05-12] MEDS: NOREPINEPHRINE 8 MG in IV NS 0.9% 242 ML IV PRN ×2 (15:39→20:58)
--- NOTE | 2022-05-12 19:10 | NUR ---
HAND OFF REPORT GIVEN TO MICAH FOR CONTINUATION OF CARE Addendum: 05/12/22 at 1912 by AJ SANDS RN ASSIGNMENT CHANGED. HAND OFF GIVEN TO DAVID COOK FOR CONTINUATION OF CARE
--- NOTE | 2022-05-12 19:30 | NUR ---
RN OPENING NOTES RECEIVED REPORT FROM JOEY ROCHA. PT IN BED, ASLEEP. CURRENTLY ON MECHANICAL VENTILATION VIA TRACH. TOLERATING VENT SETTINGS WELL. O2 SAT IN THE 90s. READING SINUS TACH ON BEDSIDE MONITOR, HR >110 BPM. NO S/SX OF ACUTE RESPI DISTRESS NOTED AT THIS TIME. IV ACCESS ON RIGHT UPPER ARM PICC LINE, FLUSHING EASILY WITHOUT RESISTANCE. LEVOPHED RUNNING ORDERED, WILL TITRATE PER PROTOCOL. AND NS TKO. GLUCERNA RUNNING 35 CC/HR ORDERED VIA NGT, NO RESIDUAL. SHEETS CATHETER IN PLACE, DRAINING OUTPUT. ALL SAFETY MEASURES IN PLACE. WILL CONTINUE PLAN OF CARE AND ANTICIPATE NEEDS.
--- NOTE | 2022-05-12 19:52 | NUR ---
RCVD PT TRACHED PORTEX 6 ON VENT SETTINGS OF AC 16,VT 350,FIO2 40%. VENT PLUGGED INTO RED OUTLET, VENT ALARMS ON AND AUDIBLE. NO RESPIRATORY DISTRESS NOTED AT THIS TIME . WILL CONTINUE TO MONITOR T/O SHIFT.
[2022-05-12] MEDS: LEVOFLOXACIN 750 MG /D5W 150ML 750 MG in PREMIX 1 EA IV SCH (20:18)
[2022-05-12] MEDS: IV NS 0.9% 250 ML IV PRN (23:26)
[2022-05-13] VITALS (75 sets, daily range): BP systolic 81–129; BP diastolic 32–84
[2022-05-13] MEDS: NOREPINEPHRINE 8 MG in IV NS 0.9% 242 ML IV PRN ×3 (02:22→15:04)
[2022-05-13] MEDS: GLUCERNA 1.2 1,000 ML BOTTLE NG PRN (02:30)
[2022-05-13 04:36] LABS: CALCIUM, SERUM 7.5 mg/dL (8.5-10.1); CREATININE 0.5 mg/dL (0.6-1.3); POTASSIUM 3.8 mmol/L (3.5-5.1)
--- NOTE | 2022-05-13 06:21 | NUR ---
RN NOTE PT ON LEVO DRIP @ 0.4 MCG/KG/MIN PER PROTOCOL. TELE MONITOR SHOWS ST WITH PVC AND BBB. OTHER VS STABLE. ALL DUE MEDS GIVEN. PM CARE DONE. WILL ENDORSE TO AM SHIFT NURSE FOR GUILLE.
--- NOTE | 2022-05-13 07:00 | NUR ---
RN NOTES RECEIVED PT ON BED, ASLEEP. ON MECHANICAL VENTILATION VIA TRACH. TOLERATING VENT SETTINGS WELL. O2 SAT IN THE 90s. READING SINUS TACH ON BEDSIDE MONITOR, HR IN 120'S, NO S/SX OF ACUTE RESPI DISTRESS NOTED AT THIS TIME. IV ACCESS ON RIGHT UPPER ARM PICC LINE, FLUSHING EASILY WITHOUT RESISTANCE. LEVOPHED RUNNING FOR BP SUPPORT, WILL TITRATE PER PROTOCOL. AND NS TKO. GLUCERNA RUNNING 35 CC/HR ORDERED VIA NGT, NO RESIDUAL. SHEETS CATHETER IN PLACE, DRAINING OUTPUT. ALL SAFETY MEASURES IN PLACE. CONTINUE TO MONITOR .
[2022-05-13] MEDS ORDERED: IV NS 0.9% 1,000 ML IV ONE (08:30)
[2022-05-13] MEDS: PANTOPRAZOLE 40 MG/PACK PACK GT SCH (08:40)
[2022-05-13] MEDS: ENOXAPARIN SODIUM 40 MG/0.4 ML DISP.SYRIN SQ SCH ×2 (08:41→20:30)
--- NOTE | 2022-05-13 12:00 | NUR ---
RN NOTES TRACH CARE AND ORAL CARE DONE, PT ON LEVO FOR BP SUPPORT, CONTINUE TO MONITOR .
[2022-05-13] MEDS ORDERED: diphenhydrAMINE HCL 25 MG CAPSULE PO ONE (13:00)
[2022-05-13] MEDS ORDERED: FAMOTIDINE (20 MG) 20 MG TABLET PO ONE (13:00)
[2022-05-13] MEDS ORDERED: methylPREDNISolone SOD SUCC 40 MG/ML VIAL IV ONE (13:00)
--- NOTE | 2022-05-13 18:19 | NUR ---
RN NOTES TRACH CARE DONE PRN, PT REMAINS ON LEVO FOR PB SUPPORT, ON TELE ST , HR IN 110'S, SHEETS DRAINING TO GRAVITY, TOLERATING TF AT 45CC/HR WELL, WILL ENDORSE TO RUFFLER NURSE FOR CONTINUITY OF CARE .
[2022-05-13] MEDS: LEVOFLOXACIN 750 MG /D5W 150ML 750 MG in PREMIX 1 EA IV SCH (20:29)
[2022-05-13] MEDS: IV NS 0.9% 250 ML IV PRN (20:39)
[2022-05-14] VITALS (92 sets, daily range): BP systolic 80–135; BP diastolic 39–85
[2022-05-14] MEDS: NOREPINEPHRINE 8 MG in IV NS 0.9% 242 ML IV PRN ×3 (00:20→11:53)
[2022-05-14 05:38] LABS: EOSINOPHILS % (AUTO) 0.1 % (0.0-6.0); HEMATOCRIT 41 % (39-51); HEMOGLOBIN 13.2 g/dL (13.5-17.5); LYMPHOCYTES # (AUTO) 0.6 K/uL (0.8-4.8); LYMPHOCYTES % (AUTO) 8.6 % (20.0-44.0); MEAN CORPUSCULAR HGB CONC 33 g/dl (31.0-36.0); MEAN CORPUSCULAR VOLUME 98 fL (80-96); MONOCYTES % (AUTO) 13.6 % (2.0-12.0); NEUTROPHILS # (AUTO) 5.5 K/uL (1.8-8.9); NEUTROPHILS % (AUTO) 77.7 % (43.0-81.0); PLATELET COUNT (AUTO) 72 K/uL (150-450); RED BLOOD CELL COUNT(AUTO) 4.14 MIL/uL (4.5-6.0); WHITE BLOOD COUNT (AUTO) 7.1 K/uL (4.3-11.0)
[2022-05-14 05:58] LABS: CALCIUM, SERUM 7.4 mg/dL (8.5-10.1); CREATININE 0.5 mg/dL (0.6-1.3); MAGNESIUM 1.9 mg/dL (1.8-2.4); PHOSPHORUS 2.6 mg/dL (2.5-4.9); POTASSIUM 4.1 mmol/L (3.5-5.1)
[2022-05-14] MEDS: GLUCERNA 1.2 1,000 ML BOTTLE NG PRN (06:01)
--- NOTE | 2022-05-14 07:00 | NUR ---
RN NOTES RECEIVED PT ON BED, ASLEEP. ON MECHANICAL VENTILATION VIA TRACH. TOLERATING VENT SETTINGS WELL. O2 SAT WNL, ST ON MONITOR , HR IN 120'S, NO S/SX OF ACUTE RESPI DISTRESS NOTED AT THIS TIME. IV ACCESS ON RIGHT UPPER ARM PICC LINE, FLUSHING EASILY WITHOUT RESISTANCE. LEVOPHED RUNNING FOR BP SUPPORT, WILL TITRATE PER PROTOCOL. AND NS TKO. GLUCERNA RUNNING 45 CC/HR ORDERED VIA NGT, NO RESIDUAL NOTED, SHEETS CATHETER IN PLACE, DRAINING OUTPUT. ALL SAFETY MEASURES IN PLACE. CONTINUE TO MONITOR .
[2022-05-14] MEDS: PANTOPRAZOLE 40 MG/PACK PACK GT SCH (08:40)
[2022-05-14] MEDS: IV NS 0.9% 1,000 ML IV PRN ×2 (09:37→20:18)
[2022-05-14] MEDS: ENOXAPARIN SODIUM 40 MG/0.4 ML DISP.SYRIN SQ SCH ×2 (09:47→13:16)
[2022-05-14 11:57] LABS: BAND % (MANUAL) 6 % (0.0-5.0); NEUTROPHILS % (MANUAL) 78 (42-76)
[2022-05-14 11:58] LABS: EOSINOPHILS % (MANUAL) 0 % (0-4); LYMPHOCYTES % (MANUAL) 11 % (16-48); MONOCYTES % (MANUAL) 5 % (0-11.0)
--- NOTE | 2022-05-14 12:00 | NUR ---
RN NOTES ORAL CARE DONE, PT ON LEVO FOR BP SUPPORT, TOLERATING VENT SETTING WELL, CONTINUE TO MONITOR .
--- NOTE | 2022-05-14 18:10 | NUR ---
RN NOTES TRACH CARE AND SUCTION DONE PRN, ON LEVO AT 0.1 MCG/KG/MIN RUNNING, FOR BP SUPPORT , TOLERATING TF AT 45 CC/HR , NO RESIDUAL NOTED, SR UP x3, CALL LIGHT WITHIN EASY REACH, BED LOCKED AND IN LOWEST POSITION, WILL ENDORSE TO SERVICE ATTENDANT NURSE FOR CONTINUITY OF CARE
--- NOTE | 2022-05-14 19:30 | NUR ---
HOUSE WIRER RCD PT WITH TUBE FEEDING MACHINE TURNED OFF; UNABLE TO FLUSH NG TUBE AT THIS TIME.
[2022-05-14] MEDS: LEVOFLOXACIN 750 MG /D5W 150ML 750 MG in PREMIX 1 EA IV SCH (20:15)
--- NOTE | 2022-05-14 23:00 | NUR ---
CHAINSTITCH SEWING MACHINE OPERATOR MULTIPLE ATTEMPTS TO UNCLOG NG TUBE UNSUCCESFUL; NEW NG TUBE INSERTED. TUBE FEEDING STARTED AT THIS TIME.
[2022-05-15] VITALS (61 sets, daily range): BP systolic 73–125; BP diastolic 33–76
[2022-05-15] MEDS: GLUCERNA 1.2 1,000 ML BOTTLE NG PRN (02:45)
[2022-05-15] MEDS: IV NS 0.9% 250 ML IV PRN (04:07)
[2022-05-15] MEDS: IV NS 0.9% 1,000 ML IV PRN (06:26)
--- NOTE | 2022-05-15 07:10 | NUR ---
DATA DESIGNER NOTE RECEIVED PATIENT IN BED RESTING OBTUNDED,GENERALIZED EDEMA ON MECHANICAL VENT5 SETTING PRESCRIBED,RIGHT UPPER ARM PICC LINE INTACT PATENT ON LEVO 0.2 MCG/KG/MIN,ON IV HYDRATION,NS 100CC/HR.SHEETS CATH IN PLACE,ON NGT FEEDING TUBE,GLUCERNA 1.2 45CC/HR.CHECKED PLACEMENT IN PLACE,NO RESIDUAL NOTED,SAFETY MEASURE IMPLEMENT BED IN LOW POSITON AND LOCKED,HEAD OF THE BED ELEVATED CONTINUE TO MONITOR.
[2022-05-15] MEDS: NOREPINEPHRINE 8 MG in IV NS 0.9% 242 ML IV PRN ×4 (07:35→22:31)
[2022-05-15] MEDS: PANTOPRAZOLE 40 MG/PACK PACK GT SCH (08:37)
[2022-05-15] MEDS: ENOXAPARIN SODIUM 40 MG/0.4 ML DISP.SYRIN SQ SCH (13:16)
[2022-05-15] MEDS ORDERED: NA PHOS,M-B/NA PHOS,DI-BA 1 EA ENEMA RC ONE (16:30)
--- NOTE | 2022-05-15 18:26 | NUR ---
RN NOTE PATIENT REMAINS OBTUNDED,CONTRACTED,ON TRACH,ON MECHANICAL VENT, SETTING PRESCRIBED,ON LEVOPHED 0.5MCG/KG/MIN.ON NGT GLUCERNA 1.2 45CC/HR.SHEETS CATH IN PLACE,ALL DUE MEDS GIVEN MD ORDERED TURNED AND REPOSITIONED EVERY 2 HOURS,KEPT CLEAN AND DRY ALL THE TIME,KEPT HEAD OF THE BED ELEVATED ALL THE TIME,ENDORSE NEXT COMING SHIFT FOR CONTINUATION OF CARE.
[2022-05-15] MEDS ORDERED: BISACODYL SUPP (10 MG) 10 MG/SUPP.RECT SUPP.RECT RC ONE (20:00)
[2022-05-15] MEDS: LEVOFLOXACIN 750 MG /D5W 150ML 750 MG in PREMIX 1 EA IV SCH (20:12)
[2022-05-16] VITALS (59 sets, daily range): BP systolic 85–127; BP diastolic 47–83
[2022-05-16] MEDS: GLUCERNA 1.2 1,000 ML BOTTLE NG PRN (02:57)
[2022-05-16] MEDS: IV NS 0.9% 250 ML IV PRN (05:00)
--- NOTE | 2022-05-16 07:10 | NUR ---
PACKAGING ASSEMBLER NOTE RECEIVED PATIENT IN BED RESTING OBTUNDED, GENERALIZED EDEMA ON MECHANICAL VENT SETTING PRESCRIBED, RIGHT UPPER ARM PICC LINE INTACT PATENT ON LEVO 0.2 MCG/KG/MIN. HR.SHEETS CATH IN PLACE,ON NGT FEEDING TUBE,GLUCERNA 1.2 45CC/HR. CHECKED PLACEMENT IN PLACE, NO RESIDUAL NOTED, SAFETY MEASURE IMPLEMENT BED IN LOW POSITON AND LOCKED,HEAD OF THE BED ELEVATED, WILL CONTINUE TO MONITOR.
[2022-05-16] MEDS: NOREPINEPHRINE 8 MG in IV NS 0.9% 242 ML IV PRN ×2 (08:25→18:03)
--- NOTE | 2022-05-16 09:18 | NUR ---
RN NOTE CVP IN PLACE. LEVO AT 0.3. TUBE FEEDING ON HOLD AT THIS TIME.
[2022-05-16] MEDS: PANTOPRAZOLE 40 MG/PACK PACK GT SCH (09:34)
[2022-05-16] MEDS: IV D5/ 0.9% NACL 1,000 ML IV PRN ×2 (09:34→17:39)
[2022-05-16] MEDS ORDERED: SORBITOL SOLUTION 70% 30 ML SOLUTION PO ONE (12:00)
[2022-05-16] MEDS: LACTULOSE 10 G/15 ML UDC (PYXIS) PO SCH ×3 (12:16→23:02)
[2022-05-16] MEDS ORDERED: BISACODYL SUPP (10 MG) 10 MG/SUPP.RECT SUPP.RECT RC PRN (13:00)
--- NOTE | 2022-05-16 19:30 | NUR ---
RECEIVED PT IN BED RESTING OBTUNDED, ON MECHANICAL VENT SETTING PRESCRIBED, RIGHT UPPER ARM PICC LINE IN PLACE INFUSING LEVO AT 0.3 MCG/KG/MIN AND D5NS AT 125ML/HR. CVP AND INTERMITTENT SUCTION IN PLACE. NGT IN PLACE, FEEDING ON HOLD ORDERED. SHEETS CATH IN PLACE. SAFETY MEASURES IN PLACE. WILL CONTINUE PLAN OF CARE.
--- NOTE | 2022-05-16 19:52 | NUR ---
RN CLOSING NOTE PATIENT REMAINS OBTUNDED, CONTRACTED,ON TRACH,ON MECHANICAL VENT, SETTING PRESCRIBED,ON LEVOPHED 0.3MCG/KG/MIN. NGT ON INTERMITTENT SUCTION EXCEPT MEDS. CVP IS TO REMAIN AT 8mmHg, IF INCREASES TO 12, DISCONTINUE D5 NS IV FLUID, CURRENTLY RUNNING AT 125 MLS/HR. SHEETS CATH IN PLACE, ALL DUE MEDS GIVEN MD ORDERED TURNED AND REPOSITIONED EVERY 2 HOURS, KEPT CLEAN AND DRY ALL THE TIME, KEPT HEAD OF THE BED ELEVATED ALL THE TIME, ALL SAFETY MEASURES IN PLACE. ENDORSED NEXT COMING SHIFT FOR CONTINUITY OF CARE.
[2022-05-16] MEDS: LEVOFLOXACIN (250MG) 250 MG TABLET PO SCH (20:04)
[2022-05-17] VITALS (58 sets, daily range): BP systolic 85–128; BP diastolic 47–108
[2022-05-17] MEDS: IV D5/ 0.9% NACL 1,000 ML IV PRN (01:11)
[2022-05-17] MEDS: NOREPINEPHRINE 8 MG in IV NS 0.9% 242 ML IV PRN ×3 (01:46→20:48)
[2022-05-17 05:16] LABS: BASOPHILS % (AUTO) 0.1 % (0.0-2.0); EOSINOPHILS % (AUTO) 0.1 % (0.0-6.0); HEMATOCRIT 26 % (39-51); HEMOGLOBIN 8.4 g/dL (13.5-17.5); LYMPHOCYTES # (AUTO) 0.5 K/uL (0.8-4.8); LYMPHOCYTES % (AUTO) 4.8 % (20.0-44.0); MEAN CORPUSCULAR HGB CONC 33 g/dl (31.0-36.0); MEAN CORPUSCULAR VOLUME 99 fL (80-96); MONOCYTES # (AUTO) 1.2 K/uL (0.1-1.30); MONOCYTES % (AUTO) 11.5 % (2.0-12.0); NEUTROPHILS # (AUTO) 9.1 K/uL (1.8-8.9); NEUTROPHILS % (AUTO) 83.5 % (43.0-81.0); PLATELET COUNT (AUTO) 83 K/uL (150-450); RED BLOOD CELL COUNT(AUTO) 2.63 MIL/uL (4.5-6.0); WHITE BLOOD COUNT (AUTO) 10.9 K/uL (4.3-11.0)
[2022-05-17 05:24] LABS: MAGNESIUM 1.7 mg/dL (1.8-2.4); PHOSPHORUS 1.9 mg/dL (2.5-4.9); POTASSIUM 4.3 mmol/L (3.5-5.1)
[2022-05-17] MEDS: LACTULOSE 10 G/15 ML UDC (PYXIS) PO SCH ×3 (05:50→19:00)
--- NOTE | 2022-05-17 06:48 | NUR ---
PT SLEEPING IN BED, OBTUNDED, ON MECHANICAL VENT SETTING PRESCRIBED, RIGHT UPPER ARM PICC LINE IN PLACE INFUSING LEVO AT 0.3 MCG/KG/MIN AND D5NS AT 125ML/HR. CVP AND INTERMITTENT SUCTION VIA NGT IN PLACE. FEEDING ON HOLD ORDERED. SHEETS CATH IN PLACE. DUE MEDS AND PRN MEDS GIVEN NEEDED AND ORDERED. NEEDS ATTENDED. KEPT CLEAN AND DRY. SAFETY MEASURES MAINTAINED. WILL ENDORSE TO NEXT NURSE ON DUTY FOR CONTINUITY OF CARE.
--- NOTE | 2022-05-17 08:08 | NUR ---
RN NOTE CVP REACHED 12 AT 0800, STOPPED IV FLUID D5 NS @ 125MLS/HR. CVP IS CURRENTLY AT 8. BP: 113/66 AT THIS TIME, PER DR ASHLEY, STOP LEVOPHED.
[2022-05-17] MEDS: PANTOPRAZOLE 40 MG/PACK PACK GT SCH (10:11)
[2022-05-17] MEDS: MIDODRINE HCL (5MG) 5 MG TABLET PO SCH ×3 (10:28→19:00)
[2022-05-17] MEDS: Magnesium 1GM/D5W 100ML PREMIX 100 ML IV SCH ×2 (11:03→12:18)
[2022-05-17] MEDS ORDERED: FUROSEMIDE 20 MG/2 ML VIAL IV ONE (11:30)
[2022-05-17] MEDS: NEUTRA PHOS 1 POWD.PACKET PO SCH ×2 (11:39→19:00)
[2022-05-17] MEDS: IV D5/ 0.9% NACL 1,000 ML IV SCH (13:24)
--- NOTE | 2022-05-17 20:57 | NUR ---
RN CLOSING NOTE PATIENT REMAINS OBTUNDED, CONTRACTED,ON TRACH, ON MECHANICAL VENT, SETTINGS PRESCRIBED. LEVOPHED 0.3MCG/KG/MIN. NGT ON INTERMITTENT SUCTION EXCEPT MEDS. CVP AT 8MMHG. IV FLUID D5NS RUNNING AT 75 MLS/HR FROM RU PICC LINE. SHEETS CATH IN PLACE. ALL SAFETY MEASURES IN PLACE. ENDORSED NEXT COMING SHIFT FOR CONTINUITY OF CARE.
[2022-05-17] MEDS: LEVOFLOXACIN (250MG) 250 MG TABLET PO SCH (22:00)
[2022-05-17 22:34] LABS: LYMPHOCYTES % (MANUAL) 8 % (16-48); MONOCYTES % (MANUAL) 4 % (0-11.0); NEUTROPHILS % (MANUAL) 88 (42-76)
[2022-05-18] VITALS (99 sets, daily range): BP systolic 71–126; BP diastolic 33–83
[2022-05-18] MEDS: IV D5/ 0.9% NACL 1,000 ML IV SCH ×3 (01:21→20:19)
[2022-05-18] MEDS: NOREPINEPHRINE 8 MG in IV NS 0.9% 242 ML IV PRN (04:00)
[2022-05-18] MEDS: LACTULOSE 10 G/15 ML UDC (PYXIS) PO SCH ×2 (06:00)
--- NOTE | 2022-05-18 07:30 | NUR ---
OPENING NOTE: REPORT RECEIVED FROM ANDREW COOK. LABS AND ORDERS REVIEWED DURING REPORT. PT IS VDRF PATIENT. PER REPORT 1 LARGE BM LAST NIGHT SO LACTULOSE ORDER NOT NEEDED ANYMORE, PER ORDER. PT IS CURRENTLY MAXED AT 1MCG/KG/MIN ON LEVOPHED, WILL ATTEMPT TO TITRATE DOWN THIS SHIFT. VERY LITTLE URINE OUTPUT NOTED. PT CHECKED ON HOURLY AND PRN BY NURSING STAFF.
[2022-05-18] MEDS: NOREPINEPHRINE 32 MG in IV NS 0.9% 218 ML IV PRN (07:36)
[2022-05-18] MEDS: MIDODRINE HCL (5MG) 5 MG TABLET PO SCH ×2 (08:59→18:19)
[2022-05-18] MEDS: PANTOPRAZOLE 40 MG/PACK PACK GT SCH (08:59)
--- NOTE | 2022-05-18 12:00 | NUR ---
NO URINE OUTPUT THIS SHIFT. SHEETS CATHETER FLUSHED WITH 60 ML OF NS PER PROTOCOL. 75ML RETURNED = NET 15ML, NOTIFIED.
--- NOTE | 2022-05-18 19:00 | NUR ---
END OF SHIFT NOTE: TOTAL OF 35 ML OF URINE OUTPUT THIS SHIFT. NOTHING OUT OF NG TUBE TO LIS. PICC LINE DRESSING CHANGED THIS SHIFT. CVP READINGS WERE 9-11 THIS SHIFT. PT CHECKED ON HOURLY AND PRN BY NURSING STAFF.
[2022-05-18] MEDS: LEVOFLOXACIN (250MG) 250 MG TABLET PO SCH (20:19)
[2022-05-18] MEDS ORDERED: FUROSEMIDE 20 MG/2 ML VIAL IV SCH (20:30)
[2022-05-19] VITALS (64 sets, daily range): BP systolic 89–150; BP diastolic 43–87
--- NOTE | 2022-05-19 00:02 | NUR ---
ICU/RN: REPORT TO DEANNE COOK FOR CONT OF CARE.
--- NOTE | 2022-05-19 00:05 | NUR ---
RECEIVED REPORT FROM JOEY MORALES FOR CONTINUE OF CARE.
[2022-05-19] MEDS: NOREPINEPHRINE 32 MG in IV NS 0.9% 218 ML IV PRN (00:46)
[2022-05-19] MEDS: MIDODRINE HCL (5MG) 5 MG TABLET PO SCH ×3 (01:38→17:44)
[2022-05-19 06:14] LABS: CALCIUM, SERUM 7.1 mg/dL (8.5-10.1); CREATININE 0.9 mg/dL (0.6-1.3); PHOSPHORUS 3.8 mg/dL (2.5-4.9); POTASSIUM 4.5 mmol/L (3.5-5.1)
--- NOTE | 2022-05-19 06:48 | NUR ---
GENERAL MERCHANDISE MANAGER CLOSING NOTES: PT IN BED, OBTUNDED. ON TRACH TO MECHANICAL VENT SETTING: AC-16, TV-350, FIO2-40, PEEP-0. IV ACCESS ON RT UPPER ARM PICC INTACT AND PATENT. RUNNING LEVOPHED AT 0.2 MCG/KG/MIN AND D5 NS AT 50CC/HR. NO FACIAL GRIMACING NOTED. NO ACUTE DISTRESS. SHEETS CATHETER IN PLACE. DRAINING BY GRAVITY. RUNNING RYAN COLOR URINE. CVP READING BETWEEN 8-11. ALL DUE MEDS GIVEN ORDERED. WOUND CARE DONE. ALL SAFETY MEASURES IN PLACE. SIDE RAILS UP X3. BED IN LOWEST POSITION AND LOCKED. PLACED CALL LIGHT WITH IN REACH. WILL ENDORSE TO MORNING SHIFT NURSE.
--- NOTE | 2022-05-19 07:10 | NUR ---
DIRECTOR OF MOBILE MARKETING OPENING NOTE RECEIVED PATIENT IN BED RESTING OBTUNDED, GENERALIZED EDEMA ON MECHANICAL VENT SETTING PRESCRIBED, RIGHT UPPER ARM PICC LINE INTACT PATENT ON LEVO 0.4 MCG/KG/MIN. HR.D5NS RUNNING AT 50 ML /HR,CVP 11FOLEY CATH IN PLACE,ON NGT FEEDING ON HOLD CHECKED PLACEMENT IN PLACE, NO RESIDUAL NOTED, SAFETY MEASURE IMPLEMENT BED IN LOW POSITION AND LOCKED,HEAD OF THE BED ELEVATED, WILL CONTINUE TO MONITOR
[2022-05-19 07:49] LABS: BASOPHILS % (AUTO) 0.3 % (0.0-2.0); EOSINOPHILS % (AUTO) 0.2 % (0.0-6.0); HEMATOCRIT 28 % (39-51); HEMOGLOBIN 8.8 g/dL (13.5-17.5); LYMPHOCYTES # (AUTO) 0.7 K/uL (0.8-4.8); LYMPHOCYTES % (AUTO) 5.8 % (20.0-44.0); MEAN CORPUSCULAR HGB CONC 32 g/dl (31.0-36.0); MEAN CORPUSCULAR VOLUME 101 fL (80-96); MONOCYTES # (AUTO) 1.4 K/uL (0.1-1.30); MONOCYTES % (AUTO) 10.8 % (2.0-12.0); NEUTROPHILS # (AUTO) 10.7 K/uL (1.8-8.9); NEUTROPHILS % (AUTO) 82.9 % (43.0-81.0); PLATELET COUNT (AUTO) 91 K/uL (150-450); RED BLOOD CELL COUNT(AUTO) 2.76 MIL/uL (4.5-6.0); WHITE BLOOD COUNT (AUTO) 12.9 K/uL (4.3-11.0)
--- NOTE | 2022-05-19 09:15 | NUR ---
RN NOTES: PT NOTED WITH SEVERE RESPIRATORY DISTRESS ON BIPAP. O2 SAT 55,SEEN BY DR ASHLEY WITH ORDER TO ENTUBATE HIM,, CALLED ER AND RT TEAM FOR ENTUBATION
[2022-05-19] MEDS: PANTOPRAZOLE 40 MG/PACK PACK GT SCH (09:35)
[2022-05-19] MEDS ORDERED: GLUCERNA 1.2 1,000 ML BOTTLE NG PRN (10:00)
[2022-05-19 17:30] LABS: EOSINOPHILS % (MANUAL) 1 % (0-4); LYMPHOCYTES % (MANUAL) 9 % (16-48); MONOCYTES % (MANUAL) 11 % (0-11.0); NEUTROPHILS % (MANUAL) 79 (42-76)
--- NOTE | 2022-05-19 18:53 | NUR ---
rn notes: sister Evelyn and Niece kandy came and picked up all belonging including cell phone
--- NOTE | 2022-05-19 19:34 | NUR ---
RN CLOSING NOTE PATIENT REMAINS OBTUNDED, CONTRACTED,ON TRACH,ON MECHANICAL VENT, SETTING PRESCRIBED,ON LEVOPHED 0.4MCG/KG/MIN. NGT RUNNING GLUCERNA 30 ML/HR. CVP I1, . SHEETS CATH IN PLACE, ALL DUE MEDS GIVEN MD ORDERED TURNED AND REPOSITIONED EVERY 2 HOURS, KEPT CLEAN AND DRY ALL THE TIME, KEPT HEAD OF THE BED ELEVATED ALL THE TIME, ALL SAFETY MEASURES IN PLACE. ENDORSED NEXT COMING SHIFT FOR CONTINUITY OF CARE.
--- NOTE | 2022-05-19 19:45 | NUR ---
LAMP MECHANIC OPENING NOTES: RECEIVED PT IN BED, OBTUNDED. ON TRACH TO MECHANICAL VENT SETTING: AC-16, TV-350, FIO2-40, PEEP-0. IV ACCESS ON RT UPPER ARM PICC INTACT AND PATENT. DECREASED LEVOPHED AT 0.3 MCG/KG/MIN DUE TO BP- 129/75, PULSE- 84. PT TOLERATED WELL. NO FACIAL GRIMACING NOTED. NO ACUTE DISTRESS. SHEETS CATHETER IN PLACE. DRAINING BY GRAVITY. RUNNING RYAN COLOR URINE. CVP READING AT THIS [id number]. GENERALIZED EDEMA NOTED. ALL SAFETY MEASURES IN PLACE. SIDE RAILS UP X3. BED IN LOWEST POSITION AND LOCKED. PLACED CALL LIGHT WITH IN REACH. WILL CONTINUE TO MONITOR
[2022-05-19] MEDS: LEVOFLOXACIN (250MG) 250 MG TABLET PO SCH (20:27)
[2022-05-20] VITALS (95 sets, daily range): BP systolic 77–125; BP diastolic 36–68
[2022-05-20] MEDS: MIDODRINE HCL (5MG) 5 MG TABLET PO SCH ×3 (01:03→16:57)
[2022-05-20] MEDS ORDERED: NOREPINEPHRINE 4 MG/4 ML AMPUL IV ONE (01:35)
[2022-05-20] MEDS: NOREPINEPHRINE 32 MG in IV NS 0.9% 218 ML IV PRN ×2 (01:53→09:13)
[2022-05-20 04:19] LABS: EOSINOPHILS % (AUTO) 0.2 % (0.0-6.0); HEMATOCRIT 24 % (39-51); HEMOGLOBIN 7.7 g/dL (13.5-17.5); LYMPHOCYTES # (AUTO) 0.6 K/uL (0.8-4.8); LYMPHOCYTES % (AUTO) 4.9 % (20.0-44.0); MEAN CORPUSCULAR HGB CONC 32 g/dl (31.0-36.0); MEAN CORPUSCULAR VOLUME 99 fL (80-96); MONOCYTES % (AUTO) 8.4 % (2.0-12.0); NEUTROPHILS # (AUTO) 10.2 K/uL (1.8-8.9); NEUTROPHILS % (AUTO) 86.5 % (43.0-81.0); PLATELET COUNT (AUTO) 83 K/uL (150-450); RED BLOOD CELL COUNT(AUTO) 2.41 MIL/uL (4.5-6.0); WHITE BLOOD COUNT (AUTO) 11.8 K/uL (4.3-11.0)
[2022-05-20 04:31] LABS: CALCIUM, SERUM 7.1 mg/dL (8.5-10.1); CREATININE 0.9 mg/dL (0.6-1.3); MAGNESIUM 1.9 mg/dL (1.8-2.4); PHOSPHORUS 4.3 mg/dL (2.5-4.9)
--- NOTE | 2022-05-20 05:05 | NUR ---
RN NOTES: AT 0400, PT'S BP- 77/40, PULSE 82. INCREASED LEVO TO 0.4 MCG/KG/MIN. AT 0430, STILL PT'S BP- 82/39, PULSE- 81. LEVOPHED INCREASED TO 0.5 MCG/KG/MIN. PT TOLERATED WELL.
--- NOTE | 2022-05-20 06:30 | NUR ---
CUSTOM PROTECTION OFFICER CLOSING NOTES: PT IN BED, OBTUNDED. ON TRACH TO MECHANICAL VENT SETTING: AC-16, TV-350, FIO2-40, PEEP-0. IV ACCESS ON RT UPPER ARM PICC INTACT AND PATENT. INCREASED LEVOPHED AT 0.6 MCG/KG/MIN DUE TO BP- 84/54, PULSE- 94. PT TOLERATED WELL. NO FACIAL GRIMACING NOTED. NO ACUTE DISTRESS. SHEETS CATHETER IN PLACE. DRAINING BY GRAVITY. RUNNING RYAN COLOR URINE. 270CC OUTPUT. CVP READING 5-14. WOUND CARE DONE. ALL DUE MEDS GIVEN ORDERED. ALL SAFETY MEASURES IN PLACE. SIDE RAILS UP X3. BED IN LOWEST POSITION AND LOCKED. PLACED CALL LIGHT WITH IN REACH. WILL ENDORSE TO MORNING SHIFT NURSE.
--- NOTE | 2022-05-20 07:00 | NUR ---
RN NOTES: RECEIVED PT IN BED, RESPONDS TO PAINFUL STIMULI, TRACH / VENT DEPENDENT, VENT SETTING , AC-16, TV-350, FIO2-40, PEEP-0. TOLERATING WELL, IV ACCESS ON RT UPPER ARM PICC INTACT AND PATENT. LEVOPHED AT 0.6 MCG/KG/MIN RUNNING FOR BP SUPPORT, NO ACUTE DISTRESS. SHEETS CATHETER IN PLACE DRAINING TO GRAVITY. RUNNING RYAN COLOR URINE. GENERALIZED EDEMA NOTED. ALL SAFETY MEASURES IN PLACE. SIDE RAILS UP X3. BED IN LOWEST POSITION AND LOCKED. PLACED CALL LIGHT WITH IN REACH. WILL CONTINUE TO MONITOR
[2022-05-20] MEDS: PANTOPRAZOLE 40 MG/PACK PACK GT SCH (09:36)
--- NOTE | 2022-05-20 12:00 | NUR ---
RN NOTES TRACH CARE DONE, PT ON LEVO , O2 SAT WNL, CONTINUE TO MONITOR
--- NOTE | 2022-05-20 18:12 | NUR ---
RN NOTES TRACH CARE AND SUCTION DONE PRN, ON LEVO AT 0.6 MCG/KG/MIN FOR BP SUPPORT , TOLERATING TF AT 45 CC/HR , NO RESIDUAL NOTED, SR UP x3, CALL LIGHT WITHIN EASY REACH, BED LOCKED AND IN LOWEST POSITION, WILL ENDORSE TO GATE SHEAR OPERATOR NURSE FOR CONTINUITY OF CARE .
[2022-05-20 18:40] LABS: BAND % (MANUAL) 3 % (0.0-5.0); LYMPHOCYTES % (MANUAL) 7 % (16-48); MONOCYTES % (MANUAL) 7 % (0-11.0); NEUTROPHILS % (MANUAL) 83 (42-76)
--- NOTE | 2022-05-20 19:47 | NUR ---
CABLE BRAIDER OPENING NOTES: RECEIVED PT IN BED, OBTUNDED. OPEN BOTH EYES. ON TRACH TO MECHANICAL VENT SETTING: AC-16, TV-350, FIO2-40, PEEP-0. IV ACCESS ON RT UPPER ARM PICC INTACT AND PATENT. DECREASED LEVOPHED AT 0.6 MCG/KG/MIN AND PT TOLERATED WELL. NO FACIAL GRIMACING NOTED. NO ACUTE DISTRESS. SHEETS CATHETER IN PLACE. DRAINING BY GRAVITY. RUNNING RYAN COLOR URINE. CVP READING AT THIS [id number]. GENERALIZED EDEMA NOTED. LANETTE HUGGER ON DUE LOW TEMP. ALL SAFETY MEASURES IN PLACE. SIDE RAILS UP X3. BED IN LOWEST POSITION AND LOCKED. PLACED CALL LIGHT WITH IN REACH. WILL CONTINUE TO MONITOR
[2022-05-20] MEDS: LEVOFLOXACIN (250MG) 250 MG TABLET PO SCH (19:57)
[2022-05-20] MEDS: GLUCERNA 1.2 1,000 ML BOTTLE NG PRN (20:42)
[2022-05-21] VITALS (95 sets, daily range): BP systolic 78–128; BP diastolic 41–90
[2022-05-21] MEDS: MIDODRINE HCL (5MG) 5 MG TABLET PO SCH ×3 (02:41→17:09)
[2022-05-21] MEDS: NOREPINEPHRINE 32 MG in IV NS 0.9% 218 ML IV PRN ×2 (04:30→19:57)
[2022-05-21 04:44] LABS: EOSINOPHILS % (AUTO) 0.1 % (0.0-6.0); HEMATOCRIT 22 % (39-51); HEMOGLOBIN 7.1 g/dL (13.5-17.5); LYMPHOCYTES # (AUTO) 0.5 K/uL (0.8-4.8); LYMPHOCYTES % (AUTO) 3.8 % (20.0-44.0); MEAN CORPUSCULAR HGB CONC 33 g/dl (31.0-36.0); MEAN CORPUSCULAR VOLUME 100 fL (80-96); MONOCYTES # (AUTO) 1.1 K/uL (0.1-1.30); MONOCYTES % (AUTO) 8.5 % (2.0-12.0); NEUTROPHILS # (AUTO) 10.8 K/uL (1.8-8.9); NEUTROPHILS % (AUTO) 87.6 % (43.0-81.0); PLATELET COUNT (AUTO) 84 K/uL (150-450); RED BLOOD CELL COUNT(AUTO) 2.17 MIL/uL (4.5-6.0); WHITE BLOOD COUNT (AUTO) 12.4 K/uL (4.3-11.0)
[2022-05-21 05:12] LABS: CALCIUM, SERUM 7.5 mg/dL (8.5-10.1); MAGNESIUM 1.9 mg/dL (1.8-2.4); PHOSPHORUS 4.4 mg/dL (2.5-4.9); POTASSIUM 5.5 mmol/L (3.5-5.1)
--- NOTE | 2022-05-21 06:34 | NUR ---
CAREER DEVELOPMENT SPECIALIST CLOSING NOTES: PT IN BED, OBTUNDED. ON TRACH TO MECHANICAL VENT SETTING: AC-16, TV-350, FIO2-40, PEEP-0. IV ACCESS ON RT UPPER ARM PICC INTACT AND PATENT. LEVOPHED AT 0.6 MCG/KG/MIN PT TOLERATED WELL. NO FACIAL GRIMACING NOTED. NO ACUTE DISTRESS. SHEETS CATHETER IN PLACE. DRAINING BY GRAVITY. RUNNING RYAN COLOR URINE. CVP READING 5-16. WHILE CHANGING THE PT, NOTED MULTIPLE OPEN WOUND ON RT BUTTOCK AND LEFT FINGERS. WOUND CARE DONE. NOTED GENERALIZED EDEMA ALL OVER THE BODY. PICTURES TAKEN AND PLACED IN CHART. ALL DUE MEDS GIVEN ORDERED. ALL SAFETY MEASURES IN PLACE. SIDE RAILS UP X3. BED IN LOWEST POSITION AND LOCKED. PLACED CALL LIGHT WITH IN REACH. WILL ENDORSE TO MORNING SHIFT NURSE.
--- NOTE | 2022-05-21 07:05 | NUR ---
RN NOTES: RECEIVED PT IN BED, RESPONDS TO PAINFUL STIMULI, TRACH / VENT DEPENDENT, VENT SETTING , TOLERATING VENT SETTING WELL, IV ACCESS ON RT UPPER ARM PICC INTACT AND PATENT. LEVOPHED AT 0.6 MCG/KG/MIN RUNNING FOR BP SUPPORT, NO ACUTE DISTRESS NOTED, SHEETS CATHETER IN PLACE DRAINING TO GRAVITY. RUNNING RYAN COLOR URINE. GENERALIZED EDEMA NOTED. ALL SAFETY MEASURES IN PLACE. SIDE RAILS UP X3. BED IN LOWEST POSITION AND LOCKED. CALL LIGHT WITHIN EASY REACH. WILL CONTINUE TO MONITOR
[2022-05-21] MEDS: PANTOPRAZOLE 40 MG/PACK PACK GT SCH (08:25)
--- NOTE | 2022-05-21 09:04 | NUR ---
WOUND CARE CONSULT: PT PRESENTS WITH PROFOUND GENERALIZED, WEEPING EDEMA, MULTIPLE WOUNDS AND SKIN LESIONS INCLUDING LESIONS TO LEFT HAND AND ARM, RT EAR INTACT DEEP TISSUEINJURY, DEEP TISSUE INJURIES TO BILATERAL BUTTOCKS, SEVERE WEEPING EDEMA TO SCROTUM, LEFT ANKLE INTACT PURPLE AREA WELL PURPLE DISCOLORATION TO BASE OF PENIS WITH SEVERE EDEMA TO PENIS AND SCROTUM. PT NOTED TO HAVE MULTIPLE CO-MORBIDIDTIES INCLUDING DUCHENNES MUSCULAR DYSTROPHY, RESPIRATORY FAILURE SECONDARY TO PNEUMONIA, DIABETES, SEPSIS, METABOLIC ACIDOSIS, QUADRIPLEGIA (STATUS POST SPINAL FUSION) AND NON ST ELEVATION M.I. DUE TO MULTIPLE CO-MORBIDITIES, FURTHER SKIN BREAKDOWN MAY BE UNAVOIDABLE. PT IS ON FIRST STEP CIRRUS LOW AIRLOSS MATTRESS. ALL SKIN PROTECTION AND WOUND CARE RECOMMENDATIONS DISCUSSED WITH NURSING STAFF. MD IN AGREEMENT WITH PLAN OF CARE.
[2022-05-21] MEDS ORDERED: INSULIN REGULAR, HUMAN 100 UNIT/ML 3 ML VIAL IV ONE (10:00)
[2022-05-21] MEDS ORDERED: DEXTROSE 50%-WATER 50 ML DISP.SYRIN IVP ONE (10:00)
[2022-05-21 11:08] LABS: BAND % (MANUAL) 2 % (0.0-5.0); EOSINOPHILS % (MANUAL) 1 % (0-4); LYMPHOCYTES % (MANUAL) 2 % (16-48); MONOCYTES % (MANUAL) 5 % (0-11.0); NEUTROPHILS % (MANUAL) 90 (42-76)
[2022-05-21] MEDS: METRONIDAZOLE 500MG/ NS 100ML 500 MG in PREMIX 1 EA IV SCH ×2 (11:46→18:27)
--- NOTE | 2022-05-21 14:08 | NUR ---
RN NOTES CALL MADE TO PT'S DISTANCE COUSIN ( JESSEE JIMENES ) TO GET CONSENT FOR US GUIDED THORACENTESIS . JESSEE STATED THAT HE HAS NO AUTHORITY TO GIVE CONSENT , AND HIS CONSENT HAS NO MEANING IN COURT OF LAW. CHARIS GUAJARDO CORE CLEANER NOTIFIED .
--- NOTE | 2022-05-21 18:08 | NUR ---
RN NOTES TRACH CARE AND SUCTION DONE PRN, WOUND CARE DONE, PT ON LANETTE HUGGER , T=95, ON LEVO AT 0.7 MCG/KG/MIN FOR BP SUPPORT , TOLERATING TF AT 45 CC/HR , NO RESIDUAL NOTED, SR UP x3, CALL LIGHT WITHIN EASY REACH, BED LOCKED AND IN LOWEST POSITION, WILL ENDORSE TO HOOP PUNCHER NURSE FOR CONTINUITY OF CARE .
--- NOTE | 2022-05-21 20:00 | NUR ---
MASTIC MAN OPENING RECEIVED PT IN BED, OBTUNDED. ON TRACH TO MECHANICAL VENT SETTING: AC-16, TV-350, FIO2-40, PEEP-0. TOLERATING VENT SETTING. IV ACCESS ON RIGHT UPPER ARM PICC, INTACT AND PATENT. ON [id number] AT 0.8 MCG/KG/MIN. SBP MAINTAINED >90. TOLERATED WELL. NG-TUBE FEEDING, 10ML RESIDUAL, FLUSHED, AUSCULTATED FOR PLACEMENT, INTACT. NO FACIAL GRIMACING NOTED. NO ACUTE DISTRESS. SHEETS CATHETER IN PLACE, DRAINING RYAN COLORED URINE. GENERALIZED EDEMA NOTED. DUE MEDS GIVEN. ALL SAFETY MEASURES IN PLACE. SIDE RAILS UP X3. BED IN LOWEST POSITION AND LOCKED. PLACED CALL LIGHT WITH IN REACH. WILL CONTINUE TO MONITOR
[2022-05-21] MEDS: LEVOFLOXACIN (250MG) 250 MG TABLET PO SCH (20:20)
[2022-05-22] VITALS (113 sets, daily range): BP systolic 76–131; BP diastolic 39–85
[2022-05-22] MEDS: GLUCERNA 1.2 1,000 ML BOTTLE NG PRN (00:23)
[2022-05-22] MEDS: IV NS 0.9% 250 ML IV PRN (00:23)
[2022-05-22] MEDS: MIDODRINE HCL (5MG) 5 MG TABLET PO SCH ×3 (01:41→18:22)
[2022-05-22] MEDS: METRONIDAZOLE 500MG/ NS 100ML 500 MG in PREMIX 1 EA IV SCH ×3 (03:06→21:19)
[2022-05-22] MEDS: PHENYLEPHRINE 100 MG in IV NS 0.9% 240 ML IV PRN ×2 (03:28→16:55)
--- NOTE | 2022-05-22 04:00 | NUR ---
ICU NOTES - SBP LOW <90. MAX LEVO. STARTED INFUSING JORGE PRN ORDERED. TITRATED NEEDED.
[2022-05-22 05:18] LABS: BASOPHILS % (AUTO) 0.2 % (0.0-2.0); EOSINOPHILS % (AUTO) 0.1 % (0.0-6.0); HEMATOCRIT 22 % (39-51); LYMPHOCYTES # (AUTO) 0.4 K/uL (0.8-4.8); LYMPHOCYTES % (AUTO) 3.4 % (20.0-44.0); MEAN CORPUSCULAR HGB CONC 32 g/dl (31.0-36.0); MEAN CORPUSCULAR VOLUME 101 fL (80-96); MONOCYTES # (AUTO) 1.1 K/uL (0.1-1.30); MONOCYTES % (AUTO) 8.5 % (2.0-12.0); NEUTROPHILS # (AUTO) 11.3 K/uL (1.8-8.9); NEUTROPHILS % (AUTO) 87.8 % (43.0-81.0); PLATELET COUNT (AUTO) 89 K/uL (150-450); RED BLOOD CELL COUNT(AUTO) 2.18 MIL/uL (4.5-6.0); WHITE BLOOD COUNT (AUTO) 12.9 K/uL (4.3-11.0)
--- NOTE | 2022-05-22 05:25 | NUR ---
DUST MILL OPERATOR - RECEIVED CRITICAL LAB VALUES FROM LAB. HGB 7, HCT 22. INFORMED DR. TREASURE NP. NO NEW ORDERS.
[2022-05-22 05:43] LABS: CALCIUM, SERUM 7.6 mg/dL (8.5-10.1); MAGNESIUM 2.1 mg/dL (1.8-2.4); PHOSPHORUS 5.1 mg/dL (2.5-4.9); POTASSIUM 5.6 mmol/L (3.5-5.1)
--- NOTE | 2022-05-22 06:45 | NUR ---
ENVELOPE FOLDING MACHINE ADJUSTER - MAX LEVO AND JORGE. STILL LOW BP. INFORMED DR. AMANDA, CLAIMS CUSTOMER SERVICE REPRESENTATIVE. ORDERED VASOPRESSIN.
--- NOTE | 2022-05-22 07:00 | NUR ---
LOCAL BULK DRIVER - VASOPRESSIN STARTED AT 0.01. BP STILL LOW. ENDORSE TO [place] FOR GUILLE. KEPT COMFORTABLE. SAFETY MEASURES MAINTAINED. TEMP 96.5.
[2022-05-22] MEDS: VASOPRESSIN INJ 40 UNIT in IV NS 0.9% 38 ML IV PRN ×2 (07:04→19:04)
[2022-05-22] MEDS: NOREPINEPHRINE 32 MG in IV NS 0.9% 218 ML IV PRN ×2 (07:11→19:02)
--- NOTE | 2022-05-22 07:30 | NUR ---
RN OPENING NOTE PT RECEIVED IN BED ON MECHANICAL VENT WITH ALL PRESCRIBED SETTINGS TOLERATING WELL O2 SAT 97%. PT IS A/OX1 WITH EYES OPEN AND OBTUNDED. FC IS IN PLACE DRAINING URINE TO GRAVITY. TF INFUSING WITH GLUCERNA @40ML/HR IV ACCESS R UA PICC WITH LEVO @1MCG/HR; JORGE@ 3MCG/HR; VASOPRESSIN@0.01MCG/HR. BED IS LOCKED IN LOWEST POSITION X2 BED RAILS UP ALL HOSPITAL SAFETY MEASURES ARE IN PLACE WILL CONTINUE TO MONITOR THIS SHIFT.
[2022-05-22] MEDS: HYDROCORTISONE SOD SUCCINATE 100 MG/2 ML VIAL IV SCH ×3 (09:16→21:19)
[2022-05-22] MEDS: PANTOPRAZOLE 40 MG/PACK PACK GT SCH (09:18)
[2022-05-22] MEDS ORDERED: SODIUM POLYSTYRENE SULF. PWD 15 GM UDC PO ONE (09:30)
[2022-05-22] MEDS ORDERED: INSULIN REGULAR, HUMAN 100 UNIT/ML 10 ML VIAL IV ONE (10:00)
[2022-05-22] MEDS ORDERED: SODIUM POLYSTYRENE SULFONATE 15 G/60 ML BOTTLE PO SCH (10:00)
[2022-05-22] MEDS ORDERED: DEXTROSE 50%-WATER 50 ML DISP.SYRIN IVP ONE ×2 (10:00→11:30)
--- NOTE | 2022-05-22 12:15 | NUR ---
RN NOTE: D50 D50 MED SCANNED ALREADY FOR ONE TIME ORDER. ORDER REPOPULATED. WILL ONLY ADMINISTER ONE DOSE OF D50 PER PROVIDER.
[2022-05-22 17:46] LABS: LYMPHOCYTES % (MANUAL) 2 % (16-48); MONOCYTES % (MANUAL) 5 % (0-11.0); NEUTROPHILS % (MANUAL) 93 (42-76)
--- NOTE | 2022-05-22 19:33 | NUR ---
RN CLOSING NOTE PT IN BED ON MECHANICAL VENT WITH ALL PRESCRIBED SETTINGS TOLERATING WELL O2 SAT 96%. PT IS A/OX1 WITH EYES OPEN AND OBTUNDED. FC IS IN PLACE DRAINING URINE TO GRAVITY -200ML. TF IS OFF AT THIS TIME PER PROVIDER. IV ACCESS R UA PICC WITH LEVO @1MCG/HR; JORGE@ 3MCG/HR; VASOPRESSIN@0.03MCG/HR. BED IS LOCKED IN LOWEST POSITION X2 BED RAILS UP ALL HOSPITAL SAFETY MEASURES ARE IN PLACE WILL ENDORSE TO PAYING TELLER NURSE FOR GUILLE.
--- NOTE | 2022-05-22 19:59 | NUR ---
RN OPENING NOTE PT OBTUNDED. GENERAL IMPRESSION OF PT IS POOR. TONGUE PROTRUDING OUT OF MOUTH AND SWOLLEN. PT ON VENT AND MAINTAINING O2 OF 99%. SKIN IS TAUT, WEEPING AND PALE. EXTREMITIES ARE RIGID. R UA PICC LINE INFUSING VASOPRESSIN AT 0.03 U/MIN, NEOSYNEPHRINE AT 3 MCG/KG/MIN, AND LEVOPHED AT 1 MCG/KG/MIN. VS ARE WNL AT THIS TIME BUT WORSEN WITH ANY MOVEMENT. GTUBE INTACT AND FEEDING PAUSED. SHEETS CATHETER SECURED AND DRAINING APPROPRIATELY. BEAR HUGGER IN PLACE AND MAINTAINING TEMP OF 98.1. BED LOCKED AND AT LOW LEVEL WITH 2 RAILS UP. BED ALARM ON.
[2022-05-22] MEDS: LEVOFLOXACIN (250MG) 250 MG TABLET PO SCH (20:00)
--- NOTE | 2022-05-22 20:10 | NUR ---
RN NOTE BARBARA AMANDA CONTACTED AND ASKED IF PT SHOULD STILL RECEIVE ABX AND GTUBE MEDS TONIGHT DESPITE HAVING EDEMA AND WEEPING SKIN. BARBARA AMANDA STATES OK TO GIVE MEDS FOR TONIGHT BUT TO CHANGE PO LEVAQUIN TO IV. ORDER PLACED ON HIS BEHALF.
[2022-05-22] MEDS ORDERED: LEVOFLOXACIN 750 MG /D5W 150ML 750 MG in PREMIX 1 EA IV ONE (21:00)
[2022-05-22] MEDS ORDERED: LEVOFLOXACIN 750 MG /D5W 150ML 150 ML IV ONE (22:13)
[2022-05-23] VITALS (102 sets, daily range): BP systolic 62–123; BP diastolic 24–75
[2022-05-23] MEDS: MIDODRINE HCL (5MG) 5 MG TABLET PO SCH ×3 (01:23→16:06)
[2022-05-23] MEDS: METRONIDAZOLE 500MG/ NS 100ML 500 MG in PREMIX 1 EA IV SCH ×3 (03:05→18:31)
[2022-05-23] MEDS: PHENYLEPHRINE 100 MG in IV NS 0.9% 240 ML IV PRN ×3 (03:06→23:52)
[2022-05-23] MEDS: NOREPINEPHRINE 32 MG in IV NS 0.9% 218 ML IV PRN ×3 (04:33→21:48)
[2022-05-23 05:26] LABS: CALCIUM, SERUM 7.5 mg/dL (8.5-10.1); CREATININE 1.1 mg/dL (0.6-1.3); PHOSPHORUS 5.5 mg/dL (2.5-4.9)
[2022-05-23 05:35] LABS: BASOPHILS % (AUTO) 0.1 % (0.0-2.0); LYMPHOCYTES # (AUTO) 0.3 K/uL (0.8-4.8); LYMPHOCYTES % (AUTO) 3.1 % (20.0-44.0); MEAN CORPUSCULAR HGB CONC 32 g/dl (31.0-36.0); MEAN CORPUSCULAR VOLUME 101 fL (80-96); MONOCYTES # (AUTO) 0.9 K/uL (0.1-1.30); MONOCYTES % (AUTO) 8.3 % (2.0-12.0); NEUTROPHILS # (AUTO) 9.4 K/uL (1.8-8.9); NEUTROPHILS % (AUTO) 88.5 % (43.0-81.0); PLATELET COUNT (AUTO) 95 K/uL (150-450); WHITE BLOOD COUNT (AUTO) 10.6 K/uL (4.3-11.0)
[2022-05-23] MEDS: HYDROCORTISONE SOD SUCCINATE 100 MG/2 ML VIAL IV SCH (05:37)
[2022-05-23 06:07] LABS: HEMOGLOBIN 6.1 g/dL (13.5-17.5); RED BLOOD CELL COUNT(AUTO) 1.88 MIL/uL (4.5-6.0)
[2022-05-23 06:08] LABS: HEMATOCRIT 19 % (39-51)
--- NOTE | 2022-05-23 07:18 | NUR ---
ICU/RN PT RECEIVED IN BED, OBTUNDED. PT ON MECHANICAL VENTILATOR SAT 97% ON BEDSIDE MONITOR. RIGHT UA PICC LINE IN PLACE RUNNING LEVO AT 1MCG/KG/MIN, JORGE AT 3MCG/KG/MIN, AND VASO AT 0.03 UNITS/MIN, BP 70/35, HR 93. NGT IN PLACE, FEEDING HELD DUE TO PATIENT'S UNSTABLE CONDITION AT THIS TIME. SHEETS CATH IN PLACE. BED LOCKED AND IN LOWEST POSITION, CALL LIGHT WITHIN REACH, 3 SIDE RAILS UP.
--- NOTE | 2022-05-23 07:26 | NUR ---
RN CLOSING NOTE PT OBTUNDED WITH WORSENING CONDITION. PT ON VENT AND MAINTAINING O2 OF 99%. SKIN IS TAUT, WEEPING AND PALE. EXTREMITIES ARE RIGID. R UA PICC LINE INFUSING VASOPRESSIN AT 0.03 U/MIN, NEOSYNEPHRINE AT 3 MCG/KG/MIN, AND LEVOPHED AT 1 MCG/KG/MIN. NGTUBE INTACT AND FEEDING PAUSED DUE TO PRESSORS. SHEETS CATHETER SECURED. BEAR HUGGER IN PLACE. BP OF 70/35. DIRECTOR ENGINEERING PROVIDER MADE AWARE OF UNSTABLE VS. BED LOCKED AND AT LOW LEVEL WITH 2 RAILS UP. BED ALARM ON.
[2022-05-23] MEDS: PANTOPRAZOLE 40 MG/PACK PACK GT SCH (08:54)
[2022-05-23 11:01] LABS: LYMPHOCYTES % (MANUAL) 3 % (16-48); MONOCYTES % (MANUAL) 6 % (0-11.0); NEUTROPHILS % (MANUAL) 91 (42-76)
--- NOTE | 2022-05-23 13:52 | NUR ---
ICU/PERFORATOR UNABLE TO DRAW TYPE AND SCREEN FOR PRBC LAST NIGHT. LAB CALLED X2 REGARDING NEED TO DRAW TYPE AND SCREEN AGAIN.
--- NOTE | 2022-05-23 13:53 | NUR ---
ICU/RN COUSIN JESSEE JIMENES [phone] UPDATED ON PATIENT'S CRITICAL CONDITION AT THIS TIME. DISTANT COUSIN OF PATIENT, JESSEE STATES PT DOES NOT HAVE OTHER FAMILY MEMBER. BARBARA GUAJARDO AWARE.
--- NOTE | 2022-05-23 19:15 | NUR ---
RN OPENING NOTES RECEIVED PATIENT ON BED, AWAKE OPEN EYES, ON TRACH SIZE #6 WITH VENT SETTING AC-16, TV- 350, FIO2-50%, PEEP- OFF, AFEBRILE, NO S/S OF DISTRESS NOTED. NOTED WITH MICAELA PICC LINE. FLUSHED WITH NS. RUNNING WITH LEVO @ 1.0 MCG/KG/MIN., JORGE @ 2.6 MCG/KG/MIN. WITH ONGOING BLOOD TRANSFUSION 1 UNIT PRC, NO ADVERSE REACTION NOTED AT THIS TIME. NOTED WITH NGT ON RIGHT NARE PATENT AND INTACT, VERIFIED PLACEMENT BY AUSCULTATION, NO RESIDUAL NOTED UPON ASPIRATION, HEAD OF BED KEPT ELEVATED. SHEETS CATHETER PATENT INTACT DRAINING WITH CLEAR YELLOW URINE VIA GRAVITY. ALL SAFETY PRECAUTION PROVIDED. BED IN LOWEST POSITION, LOCKED. CALL LIGHT WITH IN REACH.
[2022-05-23] MEDS: LEVOFLOXACIN 750 MG /D5W 150ML 750 MG in PREMIX 1 EA IV SCH (20:33)
--- NOTE | 2022-05-23 22:00 | NUR ---
RN NOTES TRANSFUSION FINISHED, NO ADVERSE REACTION NOTED, LATEST V/S T- 97.4, HR- 117, BP- 115/69, RR- 16. CONTINUE TO MONITOR
[2022-05-24] VITALS (95 sets, daily range): BP systolic 73–131; BP diastolic 36–96
[2022-05-24] MEDS: IV NS 0.9% 250 ML IV PRN ×2 (01:10→22:37)
[2022-05-24] MEDS: MIDODRINE HCL (5MG) 5 MG TABLET PO SCH ×3 (01:34→16:59)
[2022-05-24] MEDS: METRONIDAZOLE 500MG/ NS 100ML 500 MG in PREMIX 1 EA IV SCH ×3 (02:47→18:14)
[2022-05-24] MEDS: NOREPINEPHRINE 32 MG in IV NS 0.9% 218 ML IV PRN ×3 (04:42→19:55)
[2022-05-24 04:51] LABS: CALCIUM, SERUM 7.8 mg/dL (8.5-10.1); CREATININE 1.1 mg/dL (0.6-1.3); PHOSPHORUS 6.1 mg/dL (2.5-4.9); POTASSIUM 4.7 mmol/L (3.5-5.1)
[2022-05-24 04:55] LABS: BASOPHILS % (AUTO) 0.1 % (0.0-2.0); HEMATOCRIT 25 % (39-51); HEMOGLOBIN 8.2 g/dL (13.5-17.5); LYMPHOCYTES # (AUTO) 0.4 K/uL (0.8-4.8); LYMPHOCYTES % (AUTO) 3.1 % (20.0-44.0); MEAN CORPUSCULAR HGB CONC 33 g/dl (31.0-36.0); MEAN CORPUSCULAR VOLUME 97 fL (80-96); MONOCYTES # (AUTO) 1.4 K/uL (0.1-1.30); NEUTROPHILS % (AUTO) 84.8 % (43.0-81.0); PLATELET COUNT (AUTO) 102 K/uL (150-450); RED BLOOD CELL COUNT(AUTO) 2.57 MIL/uL (4.5-6.0); WHITE BLOOD COUNT (AUTO) 11.7 K/uL (4.3-11.0)
--- NOTE | 2022-05-24 07:30 | NUR ---
RN OPENING NOTE PT RECEIVED IN BED ON MECHANICAL VENT WITH ALL PRESCRIBED SETTINGS TOLERATING WELL O2 SAT 97%. PT IS A/OX1 WITH EYES OPEN AND OBTUNDED. FC IS IN PLACE DRAINING URINE TO GRAVITY. TF IS NOT INFUSING AT THIS TIME AND NG IS CLAMPED. IV ACCESS R UA PICC WITH LEVO @1MCG/HR; JORGE@ 2.6MCG/HR. BED IS LOCKED IN LOWEST POSITION X2 BED RAILS UP ALL HOSPITAL SAFETY MEASURES ARE IN PLACE WILL CONTINUE TO MONITOR THIS SHIFT.
[2022-05-24] MEDS: PANTOPRAZOLE 40 MG/PACK PACK GT SCH (09:33)
[2022-05-24] MEDS: PHENYLEPHRINE 100 MG in IV NS 0.9% 240 ML IV PRN ×2 (09:34→18:25)
--- NOTE | 2022-05-24 11:15 | NUR ---
RN NOTE: US PER PROVIDER, PT NOT STABLE AT THIS TIME FOR US GUIDED THORACENTESIS
--- NOTE | 2022-05-24 18:41 | NUR ---
RN CLOSING NOTE PT IN BED ON MECHANICAL VENT WITH ALL PRESCRIBED SETTINGS TOLERATING WELL O2 SAT 96%. PT IS A/OX1 WITH EYES OPEN AND OBTUNDED. FC IS IN PLACE DRAINING URINE TO GRAVITY -600ML. TF IS NOT INFUSING AT THIS TIME AND NG IS CLAMPED. IV ACCESS R UA PICC WITH LEVO @1MCG/HR; JROGE@ 2.6MCG/HR. BED IS LOCKED IN LOWEST POSITION X2 BED RAILS UP ALL HOSPITAL SAFETY MEASURES ARE IN PLACE WILL ENDORSE TO ASSISTED LIVING HOUSEKEEPER NURSE FOR GUILLE.
--- NOTE | 2022-05-24 20:00 | NUR ---
ICU NOTES Received patient open eyes spontaneously non verbal non interactive.Dx:Respiratory failure chronic vent trach dependent,Metabolic Acidosis,and NSTEMI.Patient on full vent support as prescribed well tolerated ST with PVC's BBB.Hemodynamically unstable on Levophed gtt max at 1 mcg and Marlon Synephrine gtt at 2.6 mcg. and will titrate per protocol.Both IV's infusing via MICAELA ML and site intact.R NGT clamped.NPO. FC to gravity.No acute distress.Turned and repositioned to comfort offloading pressure points.Continue monitoring.
[2022-05-24] MEDS: LEVOFLOXACIN 750 MG /D5W 150ML 750 MG in PREMIX 1 EA IV SCH (20:11)
[2022-05-25] VITALS (96 sets, daily range): BP systolic 78–127; BP diastolic 32–94
--- NOTE | 2022-05-25 | NUR ---
ICU NOTES Patient hypothermic 93.4 kept warm with Emi Hugger and blanket.Turned and repositioned.
[2022-05-25] MEDS: MIDODRINE HCL (5MG) 5 MG TABLET PO SCH ×3 (01:10→17:48)
[2022-05-25 01:24] LABS: BILIRUBIN,URINE NEGATIVE (NEGATIVE); COLOR,URINE YELLOW (YELLOW); LEUKOCYTE ESTERASE ,URINE 1+ (NEGATIVE); NITRITE, URINE NEGATIVE (NEGATIVE); PROTEIN,URINE TRACE mg/dl (NEGATIVE); UGLUCOSE NEGATIVE (NEGATIVE); UROBILINOGEN,URINE 0.2 EU/dL (0.2)
[2022-05-25 01:33] LABS: BACTERIA,URINE None seen /HPF (None Seen); SQUAMOUS EPITHELIAL CELL,UR Rare /HPF (None Seen); YEAST,URINE Many /HPF (None Seen)
[2022-05-25] MEDS ORDERED: NOREPINEPHRINE 4 MG/4 ML AMPUL IV ONE (02:20)
[2022-05-25] MEDS: NOREPINEPHRINE 32 MG in IV NS 0.9% 218 ML IV PRN ×6 (02:36→23:27)
[2022-05-25] MEDS: METRONIDAZOLE 500MG/ NS 100ML 500 MG in PREMIX 1 EA IV SCH ×3 (03:00→18:28)
[2022-05-25] MEDS: PHENYLEPHRINE 100 MG in IV NS 0.9% 240 ML IV PRN ×3 (03:17→18:30)
[2022-05-25 04:10] LABS: EOSINOPHILS % (AUTO) 0.1 % (0.0-6.0); HEMATOCRIT 26 % (39-51); HEMOGLOBIN 8.4 g/dL (13.5-17.5); LYMPHOCYTES # (AUTO) 0.5 K/uL (0.8-4.8); LYMPHOCYTES % (AUTO) 4.1 % (20.0-44.0); MEAN CORPUSCULAR HGB CONC 33 g/dl (31.0-36.0); MEAN CORPUSCULAR VOLUME 99 fL (80-96); MONOCYTES % (AUTO) 8.1 % (2.0-12.0); NEUTROPHILS # (AUTO) 11.3 K/uL (1.8-8.9); NEUTROPHILS % (AUTO) 87.7 % (43.0-81.0); PLATELET COUNT (AUTO) 87 K/uL (150-450); RED BLOOD CELL COUNT(AUTO) 2.63 MIL/uL (4.5-6.0); WHITE BLOOD COUNT (AUTO) 12.9 K/uL (4.3-11.0)
[2022-05-25 04:32] LABS: CALCIUM, SERUM 7.7 mg/dL (8.5-10.1); CREATININE 1.1 mg/dL (0.6-1.3); MAGNESIUM 1.9 mg/dL (1.8-2.4); PHOSPHORUS 6.3 mg/dL (2.5-4.9); POTASSIUM 3.9 mmol/L (3.5-5.1)
--- NOTE | 2022-05-25 06:54 | NUR ---
Patient resting in no acute distress.Latest Temp 96.1 rectally.Continue on same vent settings. Levophed gtt and Marlon Synephrine gtt infusing at same rate.AM care done.Turned and repositioned. Will endorse to day shift for GUILLE.
[2022-05-25] MEDS ORDERED: GLUCERNA 1.2 1,000 ML BOTTLE NG PRN (08:30)
[2022-05-25] MEDS: PANTOPRAZOLE 40 MG/PACK PACK GT SCH (08:47)
[2022-05-25] MEDS: GLUCERNA 1.2 1,000 ML BOTTLE NG PRN (08:59)
[2022-05-25 11:27] LABS: BAND % (MANUAL) 4 % (0.0-5.0); LYMPHOCYTES % (MANUAL) 4 % (16-48); METAMYELOCYTES % 1 % (0-0); MONOCYTES % (MANUAL) 5 % (0-11.0); MYELOCYTES % 1 % (0-0); NEUTROPHILS % (MANUAL) 85 (42-76)
[2022-05-25] MEDS: VASOPRESSIN INJ 40 UNIT in IV NS 0.9% 38 ML IV PRN (15:03)
[2022-05-25 15:29] LABS: ABG BASE EXCESS -19.1 mmol/L; ABG PCO2 59.7 mmHg (35.0-45.0); ABG PH 6.938 (7.350-7.450); ABG PO2 77.4 mmHg (75.0-100.0); AaDO2 211.9 mmHg; COHb 0.3 % (0.5-1.5); MetHb 0.6 % (0.0-1.5); O2Hb 92.2 % (94.0-97.0); SITE, ABG Right Radial; VENT MODE, BG AC 16 350 50% +0
--- NOTE | 2022-05-25 15:40 | NUR ---
NOTIFIED DR BUSTAMANTE THAT PT. COUSIN CALLED ,NAME IS DR. LEXI JIMENSE AND REQUESTING A CALL (COUSIN NUMBER [phone]) FROM , DR BUSTAMNATE STATES " OKAY I WILL GIVE HIM A CALL." ALSO AWARE REGARDING LOW BP IN 80s DIASTOLIC, NO NEW ORDER .
--- NOTE | 2022-05-25 16:00 | NUR ---
JESSE-PHARMACIST AND CHARGE NURSE-BERTHA MADE AWARE OF DISCREPANCY OF LEVOPHED DRIP RATE FROM THE IV PUMP=36ML/HR VERSUS IV SPREADSHEET=19.6 ML/HR. IV PUMP HAS BEEN PROGRAMMED ACCURATELY.
[2022-05-25] MEDS: LEVOFLOXACIN 750 MG /D5W 150ML 750 MG in PREMIX 1 EA IV SCH (20:00)
--- NOTE | 2022-05-25 20:00 | NUR ---
Received patient resting intubated on full vent support.ST with pvc's and BBB.Patient on multiple pressors max on Levophed gtt,Marlon Synephrine gtt and Vasopressin gtt.Will titrate accordingly to keep SBP> 90.No acute distress noted.NGT feeding infusing at low rate and well tolerated.NGT placement verified with small residual.Maintained HOB elevated to prevent aspiration.Secretions suctioned PRN. oral care done.Turned and repositioned.Continue monitoring.
[2022-05-25] MEDS ORDERED: SODIUM BICARBONATE SYR 50 MEQ/50 ML DISP.SYRIN ONE (23:38)
[2022-05-25] MEDS: SODIUM BICARBONATE SYR 150 MEQ in IV D5W 1,000 ML IV SCH (23:46)
--- NOTE | 2022-05-25 23:50 | NUR ---
Patient ABG's done by RT and resulted pH =7.1,pCO2= 21.5,pO2=85,HCO3=7.9 called to Carter Alex NP with orders received and carried out.Bicarb gtt started.
[2022-05-26] VITALS (64 sets, daily range): BP systolic 79–149; BP diastolic 49–109
[2022-05-26] MEDS: IV NS 0.9% 250 ML IV PRN (00:29)
[2022-05-26] MEDS: MIDODRINE HCL (5MG) 5 MG TABLET PO SCH ×3 (00:40→16:45)
[2022-05-26] MEDS: PHENYLEPHRINE 100 MG in IV NS 0.9% 240 ML IV PRN ×4 (02:37→22:54)
--- NOTE | 2022-05-26 04:00 | NUR ---
Patient desat to 87% -88% secretion suctioned and RT at bedside.No acute distress noted.FIO2 incresed to 100% by RT,Isaac.Patient hypothermic 95.5 via temporal scan.Emi hugger and blanket applied continuously.Continue to monitor.
[2022-05-26] MEDS: METRONIDAZOLE 500MG/ NS 100ML 500 MG in PREMIX 1 EA IV SCH ×5 (04:04→21:15)
[2022-05-26 04:21] LABS: BASOPHILS % (AUTO) 0.1 % (0.0-2.0); HEMATOCRIT 23 % (39-51); HEMOGLOBIN 7.8 g/dL (13.5-17.5); LYMPHOCYTES # (AUTO) 0.5 K/uL (0.8-4.8); MEAN CORPUSCULAR HGB CONC 33 g/dl (31.0-36.0); MEAN CORPUSCULAR VOLUME 97 fL (80-96); MONOCYTES # (AUTO) 0.9 K/uL (0.1-1.30); MONOCYTES % (AUTO) 7.6 % (2.0-12.0); NEUTROPHILS # (AUTO) 10.7 K/uL (1.8-8.9); NEUTROPHILS % (AUTO) 88.3 % (43.0-81.0); PLATELET COUNT (AUTO) 62 K/uL (150-450); RED BLOOD CELL COUNT(AUTO) 2.41 MIL/uL (4.5-6.0); WHITE BLOOD COUNT (AUTO) 12.2 K/uL (4.3-11.0)
[2022-05-26 04:46] LABS: CALCIUM, SERUM 7.8 mg/dL (8.5-10.1); CREATININE 1.1 mg/dL (0.6-1.3); MAGNESIUM 1.8 mg/dL (1.8-2.4); PHOSPHORUS 5.6 mg/dL (2.5-4.9)
[2022-05-26 04:52] LABS: POTASSIUM 2.8 mmol/L (3.5-5.1)
[2022-05-26 05:29] LABS: BASOPHILS % (MANUAL) 0 % (0.0-2.0); EOSINOPHILS % (MANUAL) 0 % (0-4); LYMPHOCYTES % (MANUAL) 4 % (16-48); MONOCYTES % (MANUAL) 3 % (0-11.0); NEUTROPHILS % (MANUAL) 93 (42-76)
--- NOTE | 2022-05-26 05:55 | NUR ---
Patient AM labs resulted.K+ 2.8 called to Abi JIMENEZ B.orders received and carried out.
[2022-05-26] MEDS ORDERED: VASOPRESSIN INJ 20 UNIT/ML VIAL ONE (06:05)
[2022-05-26] MEDS: VASOPRESSIN INJ 40 UNIT in IV NS 0.9% 38 ML IV PRN (06:11)
[2022-05-26] MEDS: POTASSIUM CL. PREMIX PERIPHER. 50 ML IV SCH ×4 (06:14→09:42)
--- NOTE | 2022-05-26 07:30 | NUR ---
RN note Received patient in bed, spontaneous eye opening. On ventilator, AC PRVC mode with rate 28/min, TV 450mL, PEEP 0 and FiO2 1.0, SpO2 93%, via tracheostomy. cardiac monitor technician showed SR HR 96/min. BP 84/67mmHg with phenylephine(bruce) runnining at max 3mcg/kg/min, norepinephrine(levophed) increasing to 0.7mcg/kg/min(from 0.6) and vasopressin running at 0.03mcg/kg/min, via right UA PICC. Bicarbonate is running at 100mL/hr for his metabolic acidosis. K2.8 is being replaced with the second bag of IV KCL. Temp 95.5 with bear hugger use. Bed is locked and placed in the lowest position. All safety measures have been implemented. Will continue care and monitoring.
[2022-05-26] MEDS: NOREPINEPHRINE 32 MG in IV NS 0.9% 218 ML IV PRN ×3 (08:12→23:57)
[2022-05-26] MEDS: PANTOPRAZOLE 40 MG/PACK PACK GT SCH (08:15)
--- NOTE | 2022-05-26 08:38 | NUR ---
RN note- desaturation SpO2 dropped to 83%(with good wave form on oximeter) with FiO2 1.0. Suctioned done. Gradually increased back to 89-91%. Dr. Dunbar is aware. Keep observation.
[2022-05-26] MEDS: SODIUM BICARBONATE SYR 150 MEQ in IV D5W 1,000 ML IV SCH (11:09)
[2022-05-26] MEDS: GLUCERNA 1.2 1,000 ML BOTTLE NG PRN (11:23)
[2022-05-26] MEDS ORDERED: POTASSIUM CHLORIDE 20 MEQ POWDER PACKET GT ONE ×2 (12:00→16:00)
[2022-05-26 14:00] LABS: CALCIUM, SERUM 7.2 mg/dL (8.5-10.1); CREATININE 1.2 mg/dL (0.6-1.3); POTASSIUM 3.3 mmol/L (3.5-5.1)
--- NOTE | 2022-05-26 20:11 | NUR ---
AUTO DAMAGE APPRAISER. INITIAL ASSESSMENT. RECEIVED THE PT REST IN BED. TRACH TO VENT CONNECTED.PT IS UNSTABLE. JORGE LEVO. VASO MAXED OUT. NO COUGH, NO GAG, PUPIL DILATED. SLUGGISH. RECTAL TEMP 34. LANETTE HUGGER ON. TRACH SHILEY#6,AC 28.TV 480,FIO2 100%. PEEP 0. SAT 94%. PODIATRIC MEDICINE DOCTOR SHOWING AT THIS TIME A .FIB. HOB ELEVATED. GT INTACT. GLUCERNA 10 ML/H. FC PATENT. RT UPPER ARM PICC LINE.JORGE 3 MCG/KG/MIN, MEGC4DEU/KG/MIN, VASO 0,03U/H. UPPER AND LOWER EXTREMITY SWOLLEN. WILL CONTINUE TO MONITOR VITALS.
[2022-05-26] MEDS: LEVOFLOXACIN 750 MG /D5W 150ML 750 MG in PREMIX 1 EA IV SCH (20:42)
[2022-05-27] VITALS (90 sets, daily range): BP systolic 69–119; BP diastolic 29–93
[2022-05-27 04:55] LABS: HEMATOCRIT 25 % (39-51); HEMOGLOBIN 8.4 g/dL (13.5-17.5); LYMPHOCYTES # (AUTO) 0.4 K/uL (0.8-4.8); MEAN CORPUSCULAR HGB CONC 33 g/dl (31.0-36.0); MEAN CORPUSCULAR VOLUME 97 fL (80-96); MONOCYTES # (AUTO) 0.4 K/uL (0.1-1.30); MONOCYTES % (AUTO) 2.4 % (2.0-12.0); NEUTROPHILS % (AUTO) 95.6 % (43.0-81.0); PLATELET COUNT (AUTO) 51 K/uL (150-450); RED BLOOD CELL COUNT(AUTO) 2.63 MIL/uL (4.5-6.0); WHITE BLOOD COUNT (AUTO) 18.8 K/uL (4.3-11.0)
[2022-05-27] MEDS: MIDODRINE HCL (5MG) 5 MG TABLET PO SCH ×4 (05:30→18:33)
[2022-05-27 05:34] LABS: CALCIUM, SERUM 7.3 mg/dL (8.5-10.1); CREATININE 1.1 mg/dL (0.6-1.3); MAGNESIUM 1.6 mg/dL (1.8-2.4); PHOSPHORUS 5.2 mg/dL (2.5-4.9)
--- NOTE | 2022-05-27 05:35 | NUR ---
ENVIRONMENTAL HEALTH SAFETY ENGINEER. AM CARE GIVEN. REMAINING SAME VENT SETTINGS TOLERATED WELL. SAT 98%. AD COPY WRITER SHOWING NSR, JORGE 3MCG/KG/MIN, LEVO 1MCG/KG/MIN, VASO 3 UN/H. HOB ELEVATED. FC PATENT URINE DRAINING. GT FEEDING TOLERATED WELL. WILL CONTINUE TO MONITOR VITALS.
[2022-05-27 06:03] LABS: POTASSIUM 2.8 mmol/L (3.5-5.1)
[2022-05-27] MEDS: NOREPINEPHRINE 32 MG in IV NS 0.9% 218 ML IV PRN ×3 (06:31→19:59)
[2022-05-27] MEDS: PHENYLEPHRINE 100 MG in IV NS 0.9% 240 ML IV PRN ×3 (06:34→20:59)
--- NOTE | 2022-05-27 07:30 | NUR ---
RN note Received patient in bed, spontaneous eye opening. On ventilator, AC PRVC mode with rate 28/min, TV 450mL, PEEP 0 and FiO2 1.0, SpO2 88%, via tracheostomy. grape cutter showed SR HR 96/min. BP 101/67 mmHg with phenylephine(bruce) runnining at max 3mcg/kg/min, norepinephrine(levophed) increasing to 1 mcg/kg/min(max) and vasopressin running at 0.03mcg/kg/min, via right UA PICC. Temp 96.1 with bear hugger use. Oral and tracheal suction is done. No cough reflex is noted. Suctioned moderate amount of whitish sputum. Bed is locked and placed in the lowest position. All safety measures have been implemented. Will continue monitoring and care.
[2022-05-27] MEDS: POTASSIUM CL. PREMIX PERIPHER. 50 ML IV SCH ×4 (08:12→11:19)
[2022-05-27] MEDS: PANTOPRAZOLE 40 MG/PACK PACK GT SCH (08:12)
[2022-05-27] MEDS: IV NS 0.9% 250 ML IV PRN (09:39)
--- NOTE | 2022-05-27 10:30 | NUR ---
NGT placement Upon checking patient this morning, noted that NGT was disconnected from patient. Could not confirm placement by auscultation. Ordered CXR and showed that NGT was not in the stomach. Re-inserted NGT via the right nostril. Confirmed placement by auscultation. Performed another CXR and confirmed placement. Will resume feeding.
[2022-05-27] MEDS: METRONIDAZOLE 500MG/ NS 100ML 500 MG in PREMIX 1 EA IV SCH ×2 (12:55→18:33)
[2022-05-27] MEDS: Magnesium 1GM/D5W 100ML PREMIX 100 ML IV SCH ×2 (13:00→13:50)
[2022-05-27] MEDS: GLUCERNA 1.2 1,000 ML BOTTLE NG PRN (13:02)
[2022-05-27] MEDS: LORAZEPAM INJ 2 MG/ML VIAL IV PRN (15:33)
[2022-05-27] MEDS: VASOPRESSIN INJ 40 UNIT in IV NS 0.9% 38 ML IV PRN (15:41)
--- NOTE | 2022-05-27 18:43 | NUR ---
Electrolyte imbalance K 2.8mmol/L & Mg 1.6mmol/L today. Doctor ordered 60mEq of KCL and 2g of Mg IV. personnel monitor showed SR with PVCs. Adminsitered as ordered. For BMP check tomorrow.
[2022-05-27] MEDS: LEVOFLOXACIN 750 MG /D5W 150ML 750 MG in PREMIX 1 EA IV SCH (19:42)
--- NOTE | 2022-05-27 19:45 | NUR ---
ICU/CROSSING SUPERVISOR RECIEVED REPORT FROM DAY RN. SEE FLOWSHEET FOR ASSESSMENT. PT IS CURRENTLY MAXED OUT ON X2 PRESSORS, SEE IV SPREAD SHEET FOR TITRATIONS. PT WAS CHANGED THEN TURNED AND REPOSIONED FOR COMFORT AND CARE. WILL CONTINUE TO MONITOR THIS PT, NO ACUTE DISTRESS SEEN AT THIS TIME.
[2022-05-27 22:25] LABS: BAND % (MANUAL) 2 % (0.0-5.0); LYMPHOCYTES % (MANUAL) 3 % (16-48); MONOCYTES % (MANUAL) 3 % (0-11.0); NEUTROPHILS % (MANUAL) 92 (42-76)
[2022-05-28] VITALS (61 sets, daily range): BP systolic 82–120; BP diastolic 46–99
[2022-05-28] MEDS: MIDODRINE HCL (5MG) 5 MG TABLET PO SCH ×3 (01:26→17:05)
[2022-05-28] MEDS: METRONIDAZOLE 500MG/ NS 100ML 500 MG in PREMIX 1 EA IV SCH ×3 (02:45→18:02)
[2022-05-28] MEDS: NOREPINEPHRINE 32 MG in IV NS 0.9% 218 ML IV PRN ×4 (02:45→22:30)
[2022-05-28] MEDS: PHENYLEPHRINE 100 MG in IV NS 0.9% 240 ML IV PRN ×3 (04:06→17:20)
[2022-05-28] MEDS: LORAZEPAM INJ 2 MG/ML VIAL IV PRN ×3 (04:14→22:57)
--- NOTE | 2022-05-28 04:22 | NUR ---
ICU/HELICOPTER MECHANIC PT APPEARED TO HAVE SOME SEIZURE LIKE ACTIVITY, ATIVAN PRN IVP WAS GIVEN FOR THIS. WILL CONTINUE TO MONITOR THIS PT.
[2022-05-28 04:45] LABS: BASOPHILS % (AUTO) 0.1 % (0.0-2.0); HEMATOCRIT 22 % (39-51); HEMOGLOBIN 7.4 g/dL (13.5-17.5); LYMPHOCYTES # (AUTO) 0.5 K/uL (0.8-4.8); LYMPHOCYTES % (AUTO) 2.4 % (20.0-44.0); MEAN CORPUSCULAR HGB CONC 33 g/dl (31.0-36.0); MEAN CORPUSCULAR VOLUME 97 fL (80-96); MONOCYTES # (AUTO) 0.5 K/uL (0.1-1.30); MONOCYTES % (AUTO) 2.5 % (2.0-12.0); NEUTROPHILS # (AUTO) 17.9 K/uL (1.8-8.9); RED BLOOD CELL COUNT(AUTO) 2.29 MIL/uL (4.5-6.0); WHITE BLOOD COUNT (AUTO) 18.8 K/uL (4.3-11.0)
[2022-05-28 04:58] LABS: PLATELET COUNT (AUTO) 36 K/uL (150-450)
[2022-05-28 05:01] LABS: PHOSPHORUS 5.1 mg/dL (2.5-4.9); POTASSIUM 3.1 mmol/L (3.5-5.1)
[2022-05-28 06:08] LABS: BAND % (MANUAL) 1 % (0.0-5.0); BASOPHILS % (MANUAL) 0 % (0.0-2.0); EOSINOPHILS % (MANUAL) 0 % (0-4); LYMPHOCYTES % (MANUAL) 4 % (16-48); MONOCYTES % (MANUAL) 5 % (0-11.0); NEUTROPHILS % (MANUAL) 90 (42-76)
--- NOTE | 2022-05-28 06:10 | NUR ---
ICU/VEHICLE OPERATOR TECHNICIAN CALLED JUKEBOX COIN COLLECTOR MD ABOUT LOW PLT OF 36, YESTERDAY WAS 51. NO NEW ORDERS WERE RECIEVED.
--- NOTE | 2022-05-28 07:15 | NUR ---
PIPING BLOCKER Bedside report taken from [facility] nurse Adams. pt obtunded, no sedation, eyes open, does not track , follow commands, does not move bue or ble and does not have cough or gag, perrla 4 sluggish. pt has trach to vent, fio2 100%, antonette lung sounds coarse and diminished. pt sinus tachy on monitor with hr 100-114, bue and ble pulses present but weak. pt has ngt to left nare, pt on glucerna @ 10 ml/hr no residuals . bowel sounds hypoactive. pt has haro intact and draining cloudy yellow urine. pt has multiple wounds, see flow sheet. pt maxed out on levophed, neosynephrine and vasopressin sbp 80-90s, all lines traced. all drips verified. safety measures in place. pt unstable. will continue to monitor.
[2022-05-28] MEDS: PANTOPRAZOLE 40 MG/PACK PACK GT SCH (08:01)
--- NOTE | 2022-05-28 10:05 | NUR ---
TEST OPERATOR unable to get bp on monitor after multiple times recycling. pt has pulse, spo2 95% and hr 107, pt eyes open and blinking but no other responses. charge nurse Mayuri COOK aware.
[2022-05-28] MEDS: POTASSIUM CL. PREMIX PERIPHER. 50 ML IV SCH ×4 (10:20→13:21)
[2022-05-28] MEDS: VASOPRESSIN INJ 40 UNIT in IV NS 0.9% 38 ML IV PRN (12:31)
--- NOTE | 2022-05-28 16:00 | NUR ---
REGIONAL LOSS PREVENTION MANAGER Pt bathed and cleaned. linen change done. pt unstable, unable to get bp reading, hr 90s, spo2 70s on fio2 100%, pulse present. safety measures in place. will continue to monitor.
--- NOTE | 2022-05-28 19:01 | NUR ---
TANNING WHEEL OPERATOR Bedside report given to [facility] nurse Adams. Pt obtunded, has trach to vent, spo2 70s, hr 80s palpable weak pulses present, unable to get bp reading since 1600, charge nurse aware. pt on max dosage of levophed, neosynephrine and vasopressin. pt unstable. pt clean and dry. safety measures in place.
[2022-05-28] MEDS: LEVOFLOXACIN 750 MG /D5W 150ML 750 MG in PREMIX 1 EA IV SCH (19:51)
--- NOTE | 2022-05-28 19:52 | NUR ---
ICU/STONE OPERATOR PT APPEARED TO HAVE SOME SEIZURE LIKE ACTIVITY, ATIVAN PRN IVP WAS GIVEN FOR THIS, BY IRRIGATOR NURSE. WILL CONTINUE TO MONITOR THIS PT.
--- NOTE | 2022-05-28 23:09 | NUR ---
ICU/FURNACE INSTALLER PT APPEARED TO HAVE SOME SEIZURE LIKE ACTIVITY, ATIVAN PRN IVP WAS GIVEN FOR THIS, BY ENGLISH FACULTY MEMBER NURSE. WILL CONTINUE TO MONITOR THIS PT AND HIS SEIZURES
[2022-05-29] VITALS (7 sets, daily range): BP systolic 86–222; BP diastolic 62–96
[2022-05-29] MEDS: PHENYLEPHRINE 100 MG in IV NS 0.9% 240 ML IV PRN ×4 (00:58→23:25)
[2022-05-29] MEDS: METRONIDAZOLE 500MG/ NS 100ML 500 MG in PREMIX 1 EA IV SCH ×3 (02:52→18:21)
[2022-05-29] MEDS: MIDODRINE HCL (5MG) 5 MG TABLET PO SCH ×3 (02:53→16:12)
[2022-05-29 04:57] LABS: BASOPHILS % (AUTO) 0.1 % (0.0-2.0); HEMATOCRIT 24 % (39-51); HEMOGLOBIN 7.7 g/dL (13.5-17.5); LYMPHOCYTES # (AUTO) 0.8 K/uL (0.8-4.8); LYMPHOCYTES % (AUTO) 3.8 % (20.0-44.0); MEAN CORPUSCULAR HGB CONC 33 g/dl (31.0-36.0); MEAN CORPUSCULAR VOLUME 98 fL (80-96); MONOCYTES # (AUTO) 0.3 K/uL (0.1-1.30); MONOCYTES % (AUTO) 1.4 % (2.0-12.0); NEUTROPHILS # (AUTO) 18.9 K/uL (1.8-8.9); NEUTROPHILS % (AUTO) 94.7 % (43.0-81.0); RED BLOOD CELL COUNT(AUTO) 2.42 MIL/uL (4.5-6.0)
[2022-05-29] MEDS: VASOPRESSIN INJ 40 UNIT in IV NS 0.9% 38 ML IV PRN ×2 (05:07→17:49)
[2022-05-29] MEDS: LORAZEPAM INJ 2 MG/ML VIAL IV PRN ×3 (05:11→16:51)
[2022-05-29 05:12] LABS: PLATELET COUNT (AUTO) 24 K/uL (150-450)
[2022-05-29 05:14] LABS: CALCIUM, SERUM 7.1 mg/dL (8.5-10.1); MAGNESIUM 1.8 mg/dL (1.8-2.4); PHOSPHORUS 5.2 mg/dL (2.5-4.9); POTASSIUM 3.5 mmol/L (3.5-5.1)
--- NOTE | 2022-05-29 05:30 | NUR ---
ICU/TOP IRONER PT APPEARED TO HAVE SOME SEIZURE LIKE ACTIVITY, ATIVAN PRN IVP WAS GIVEN FOR THIS, BY COW WASHER NURSE. WILL CONTINUE TO MONITOR THIS PT AND HIS SEIZURES
[2022-05-29] MEDS: NOREPINEPHRINE 32 MG in IV NS 0.9% 218 ML IV PRN ×3 (06:02→20:52)
--- NOTE | 2022-05-29 06:48 | NUR ---
ICU/TALENT SOURCER STOP FEEDING TO GET BLOOD PRESSURE. WILL CONTINUE TO MONITOR THIS PT. PT IS THIRD SPACING AND WEEPING FROM ARMS AND LEGS DIFFICULT TO GET BLOOD PRESSURE.
--- NOTE | 2022-05-29 07:19 | NUR ---
ICU/RN PT RECEIVED IN CRITICAL CONDITION. PT WITH TRACHEOSTOMY ON MECHANICAL VENTILATOR FIO2 100%. PT OBTUNDED, NO RESPONSE TO PAINFUL STIMULI, PUPILS FIXED. SHEETS CATH IN PLACE. NGT IN PLACE, NO FEEDING AT THIS TIME DUE TO PT'S CONDITION. LEVOPHED AT 1MCG/KG/MIN, JORGE AT 3 MCG/KG/MIN AND VASO AT 0.03 UNITS/MIN RUNNING, UNABLE TO OBTAIN BLOOD PRESSURE, HR 98 ON MONITOR. RIGHT UA PICC LINE IN PLACE. BED LOCKED AND IN LOWEST POSITION, CALL LIGHT WITHIN REACH, 3 SIDE RAILS UP.
[2022-05-29] MEDS: PANTOPRAZOLE 40 MG/PACK PACK GT SCH (08:36)
--- NOTE | 2022-05-29 09:54 | NUR ---
ICU/RN SEIZURE-LIKE ACTIVITY SEEN. ATIVAN IVP GIVEN.
[2022-05-29 10:16] LABS: BASOPHILS % (MANUAL) 0 % (0.0-2.0); EOSINOPHILS % (MANUAL) 0 % (0-4); LYMPHOCYTES % (MANUAL) 6 % (16-48); MONOCYTES % (MANUAL) 2 % (0-11.0); NEUTROPHILS % (MANUAL) 92 (42-76)
--- NOTE | 2022-05-29 11:07 | NUR ---
ICU/RN STILL UNABLE TO OBTAIN BP. DR. FULLER AWARE
[2022-05-29] MEDS: IV NS 0.9% 250 ML IV PRN (11:15)
--- NOTE | 2022-05-29 16:52 | NUR ---
ICU/RN SEIZURE-LIKE ACTIVITY NOTICED. ATIVAN PRN IVP GIVEN
--- NOTE | 2022-05-29 19:45 | NUR ---
ICU/POWER GENERATION PLANT OPERATOR PT IS CURRENTLY MAXED ON X3 PRESSORS, ALONG WITH THIRD SPACING. DIFFICULT TO GET BLOOD PRESSURE. BP IS NOT SHOWING UP. WILL CONTINUE TO MONITOR THIS PT.
[2022-05-29] MEDS: LEVOFLOXACIN 750 MG /D5W 150ML 750 MG in PREMIX 1 EA IV SCH (19:56)
[2022-05-30 01:38] VITALS: BP 0/0
[2022-05-30] MEDS: MIDODRINE HCL (5MG) 5 MG TABLET PO SCH (01:38)
--- NOTE | 2022-05-30 01:38 | NUR ---
ICU/SEAMER OPERATOR MIDODRINE 10MG GIVEN VIA G/TUBE FOR BP, HOWEVER HAVING A DIFFICULT TIME GETTING BP. PT IS CURRENTLY ON X3 PRESSORS , VASO JORGE, LEVO. WILL CONTINUE TO MONITOR THIS PT.
--- NOTE | 2022-05-30 02:55 | NUR ---
ICU/CASTING PLUG ASSEMBLER PT @224. MUSIC ARRANGER NURSE PRONOUNCED PT'S . [facility] WAS CALLED THEY DECLINE BODY WITH REF. CASE #[id number] HOUSE SUP. MICK HARDIN NOTIFED. KENNEL ATTENDANT MADE AWARE LUCI
--- NOTE | 2022-05-30 03:15 | NUR ---
ICU/GRAIN I FARMWORKER COUSIN DR LEXI JIMENES [phone] WAS CALLED TO NOTIFY HIM OF THERE IS NO WIRE GALVANIZER'S CASE @6928 BODY WAS TAKEN TO THE [place] WITH A FEW BELONGINGS
--- NOTE | 2022-05-30 05:17 | NUR ---
ICU/PRODUCTION INSPECTOR COUSIN DR LEXI JIMENES [phone] CALLED BACK TOLD HIM ABOUT [facility] , THEN HE SAID HE WOULD LOOK INTO SEEING IF THERE WAS ARRANGEMENTS MADE FOR THE PT WHEN HE PASSED.
== END 2022-05-30 04:06 | DRG 870 ==
LOC: ER 18:40 → ICU 05-07 01:01
PROVIDERS: ADMIT Registered Nurse; ATTEND Student in an Organized Health Care Education/Training Program
PROC: 5A1955Z Respiratory Ventilation, Greater than 96 Consecutive Hours (ICD-10-PCS; principal; 2022-05-07)
PROC: 05HB33Z Insertion of Infusion Device into Right Basilic Vein, Percutaneous Approach (ICD-10-PCS; 2022-05-07)
PROC: 02HV33Z Insertion of Infusion Device into Superior Vena Cava, Percutaneous Approach (ICD-10-PCS; 2022-05-07)
PROC: B548ZZA Ultrasonography of Superior Vena Cava, Guidance (ICD-10-PCS; 2022-05-07)
PROC: 05HD33Z Insertion of Infusion Device into Right Cephalic Vein, Percutaneous Approach (ICD-10-PCS; 2022-05-19)
PROC: 30233N1 Transfusion of Nonautologous Red Blood Cells into Peripheral Vein, Percutaneous Approach (ICD-10-PCS; 2022-05-23)
DX: A41.9 Sepsis, unspecified organism (principal); R53.2 Functional quadriplegia; I21.A1 Myocardial infarction type 2; J96.21 Acute and chronic respiratory failure with hypoxia; E43 Unspecified severe protein-calorie malnutrition; R65.21 Severe sepsis with septic shock; J69.0 Pneumonitis due to inhalation of food and vomit; G92.8 Other toxic encephalopathy; Z99.11 Dependence on respirator [ventilator] status; N39.0 Urinary tract infection, site not specified; I42.9 Cardiomyopathy, unspecified; E87.0 Hyperosmolality and hypernatremia; N12 Tubulo-interstitial nephritis, not specified as acute or chronic; K55.9 Vascular disorder of intestine, unspecified; E87.4 Mixed disorder of acid-base balance; J98.11 Atelectasis; J90 Pleural effusion, not elsewhere classified; R18.8 Other ascites; T73.0XXA Starvation, initial encounter; Z93.0 Tracheostomy status; Z93.1 Gastrostomy status; R13.10 Dysphagia, unspecified; Z20.822 Contact with and (suspected) exposure to COVID-19; G71.01 Duchenne or Becker muscular dystrophy; Z98.1 Arthrodesis status; Z93.4 Other artificial openings of gastrointestinal tract status; Z66 Do not resuscitate; Z88.1 Allergy status to other antibiotic agents; Z88.0 Allergy status to penicillin; Z88.2 Allergy status to sulfonamides; Z79.899 Other long term (current) drug therapy; G96.9 Disorder of central nervous system, unspecified; M62.40 Contracture of muscle, unspecified site; E11.65 Type 2 diabetes mellitus with hyperglycemia; K80.20 Calculus of gallbladder without cholecystitis without obstruction; N40.0 Benign prostatic hyperplasia without lower urinary tract symptoms; N40.2 Nodular prostate without lower urinary tract symptoms; B96.89 Other specified bacterial agents as the cause of diseases classified elsewhere; E86.0 Dehydration; Z95.1 Presence of aortocoronary bypass graft; E87.6 Hypokalemia; K52.9 Noninfective gastroenteritis and colitis, unspecified; E87.5 Hyperkalemia; K62.89 Other specified diseases of anus and rectum; N20.0 Calculus of kidney; K56.41 Fecal impaction; R57.0 Cardiogenic shock; L27.0 Generalized skin eruption due to drugs and medicaments taken internally; T36.8X5A Adverse effect of other systemic antibiotics, initial encounter; Y92.239 Unspecified place in hospital as the place of occurrence of the external cause; E83.39 Other disorders of phosphorus metabolism; X58.XXXA Exposure to other specified factors, initial encounter; D64.9 Anemia, unspecified; D69.6 Thrombocytopenia, unspecified; E86.1 Hypovolemia; N48.89 Other specified disorders of penis
CPT/HCPCS: 31720; 36410; 36415; 36569; 36600; 71045-TC; 71250-TC; 72192-TC; 76856-TC; 80048-TC; 80053-TC; 80076-TC; 80202-TC; 81001; 82010-TC; 82247-TC; 82248-TC; 82533; 82550-TC; 82693; 82803-TC; 82962-TC; 83605-TC; 83735-TC; 83880; 84100-TC; 84153-TC; 84154-TC; 84443-TC; 84484-TC; 85025-TC; 85610-TC; 86850-TC; 87040-TC; 87081-TC; 87086-TC; 92526; 92611-TC; 93307-TC; 94002-TC; 94003-TC; 94760-TC; 94762-TC; 94799-TC; 99082-TC; A4216; A4623; A6253; A6403; A7526; A9563; C9113; C9803; G0378; G0480; J0456; J0692; J1650; J1720; J1815; J1940; J1956; J2060; J2370; J2920; J3370; J3475; J3480; J3490; J7030; J7040; J7042; J7050; J7060; J7070; J7120; P9016; Q0163